=== PATIENT | male | born 1960 | race Caucasian/White ===

== ENCOUNTER 2017-07-31 13:16 | Inpatient (IN) | payer BC ==
[~2017-07-31] VITALS: Ht 182.9 cm; Wt 113.8 kg
[~2017-07-31 13:16] MED LIST: ASPI-1265 PO; ATOR40TA PO; CLOP75TA35 PO; FENO48TA15 PO; METF500T PO; NATE60TA11 PO; SITA100T15 PO; VALS1TAB73 PO; [UNRECOGNIZED DRUG - CODE] PO
[2017-07-31 14:03] LABS: CLARITY,URINE CLEAR (Clear); COLOR,URINE YELLOW (Yellow); GLUCOSE, URINE >=1000 mg/dl (Neg); KETONES,URINE NEGATIVE (Neg); LEUKOCYTE ESTERASE ,URINE NEGATIVE (Neg); NITRITES, URINE NEGATIVE (Neg); OCCULT BLOOD,URINE NEGATIVE (Neg); PROTEIN,URINE NEGATIVE (Neg); UROBILINOGEN,URINE 0.2 E.U/dL (0.2-1.0)
[2017-07-31 14:05] LABS: UA COLLECTION TYPE CLN CATCH MIDSTREAM
[2017-07-31 14:07] LABS: URINE AMPHETAMINE SCREEN NEGATIVE (Neg); URINE BARBITUATE SCREEN NEGATIVE (Neg); URINE BENZODIAZEPINES SCREEN NEGATIVE (Neg); URINE CANNABINOID SCREEN NEGATIVE (Neg); URINE COCAINE SCREEN NEGATIVE (Neg); URINE METHADONE SCREEN NEGATIVE (Neg); URINE OPIATE SCREEN POSITIVE (Neg); URINE PHENCYCLIDINE SCREEN NEGATIVE (Neg)
[2017-07-31 14:11] LABS: BASOPHILS % (AUTO) 0.2 % (0-1); EOSINOPHILS # (AUTO) 0.1 X10'3 (0-0.9); EOSINOPHILS % (AUTO) 0.4 % (0-6); HEMATOCRIT 40.3 % (42.0-52.0); HEMOGLOBIN 14.1 g/dl (14.0-17.9); LYMPHOCYTES # (AUTO) 0.6 X10'3 (1.1-4.8); LYMPHOCYTES % (AUTO) 3.2 % (21-51); MEAN CORPUSCULAR HEMOGLOBIN 30.5 PG (27.0-31.0); MEAN CORPUSCULAR VOLUME 87.2 FL (78-98); MEAN PLATELET VOLUME 8.8 FL (7.4-10.4); MONOCYTES # (AUTO) 1.1 X10'3 (0-0.9); MONOCYTES % (AUTO) 5.6 % (2-12); NEUTROPHILS % (AUTO) 90.6 % (42-75); PLATELET COUNT 270 X10'3 (140-440); RED BLOOD COUNT 4.62 X10'6 (4.70-6.10); RED CELL DISTRIBUTION WIDTH 13.1 % (11.5-14.5); WHITE BLOOD COUNT 18.8 X10'3 (4.5-11.0)
[2017-07-31 14:12] LABS: BACTERIA,URINE NONE SEEN /HPF (Neg); RBC,URINE NONE SEEN /HPF (0-2); SQUAMOUS EPITHELIAL CELL,UR NONE SEEN /LPF (FEW); WBC,URINE NONE SEEN /HPF (0-4)
[2017-07-31 14:17] LABS: ALANINE AMINOTRANSFERASE 26 U/L (12-78); ALBUMIN 3.6 G/DL (3.4-5.0); ALKALINE PHOSPHATASE 87 IU/L (46-116); ANION GAP 9 (8-16); ASPARTATE AMINO TRANSFERASE 12 U/L (10-37); BILIRUBIN,TOTAL 0.5 MG/DL (0.1-1.0); BLOOD UREA NITROGEN 21 MG/DL (7-18); BUN/CREATININE RATIO 19.3 (5.4-32.0); CHLORIDE 100 MMOL/L (99-107); CREATININE 1.09 MG/DL (0.60-1.10); GLUCOSE 289 MG/DL (70-104); POTASSIUM 4.5 MMOL/L (3.5-5.1); SODIUM 134 MMOL/L (135-145); TOTAL CARBON DIOXIDE 24.9 MMOL/L (24-32); TOTAL PROTEIN 7.3 G/DL (6.4-8.2); eGFR 70 ML/MIN
[2017-07-31] MEDS ORDERED: normal saline 1000ML IV soln IV ONE (14:35)
[2017-07-31] MEDS ORDERED: CefTRIAXone/D5W-Rocephin 1gm 50 ML IV ONE (14:35)
[2017-07-31] MEDS ORDERED: vancomycin/NS 1 GM ADD-VANTAGE 250 ML X 1 DOSE IV ONE (14:40)
[2017-07-31] MEDS ORDERED: morphine 4 MG/ML inj SYRINge IV ONE (15:30)
[2017-07-31] MEDS ORDERED: ondansetron/PF 4mg/2ml inj IV ONE (15:30)
[2017-07-31] MEDS ORDERED: mag hydrox/Alum hydrox/simeth 30ml oral suspension PO PRN (15:35)
[2017-07-31] MEDS ORDERED: potassium Cl 40MEQ/NS 500ml 500 ML IV PRN ×2 (15:35)
[2017-07-31] MEDS ORDERED: MESSAGE TO PHARMACY PO ONE (15:35)
[2017-07-31] MEDS ORDERED: magnesium hydroxide 30ml (MOM) UD suspension PO PRN (15:35)
[2017-07-31] MEDS ORDERED: dextrose 50%-water 50ml dispensing syringe IV PRN ×2 (15:35)
[2017-07-31] MEDS ORDERED: acetaminophen 325mg tablet PO PRN ×2 (15:35)
[2017-07-31] MEDS: K and/or MAG REPLACEMENT MC SCH (15:35)
[2017-07-31] MEDS ORDERED: glucagon, human recombinant 1mg kit SUBCUT PRN (15:35)
[2017-07-31] MEDS ORDERED: magnesium 2GM in 50ml NS 50 ML IV PRN (15:35)
[2017-07-31] MEDS ORDERED: HYDROcodone/acetaminophen 5mg/325mg tablet PO PRN (15:35)
[2017-07-31] MEDS ORDERED: dextrose ORAL solution 15 GM/59 ML bottle PO PRN ×2 (15:35)
[2017-07-31] MEDS ORDERED: ondansetron/PF 4mg/2ml inj IV PRN (15:35)
[2017-07-31] MEDS ORDERED: magnesium 4gm in 100ml NS 100 ML IV PRN (15:35)
[2017-07-31] MEDS ORDERED: HYDROmorphone inj. 0.5 MG/0.5 ML DISP.SYRIN IV PRN ×2 (15:35)
[2017-07-31] MEDS ORDERED: potassium Cl 20 mEq SR tablet PO PRN ×2 (15:35)
[2017-07-31] MEDS ORDERED: magnesium Cl slow-release 64mg tablet PO PRN (15:35)
[2017-07-31 16:07] LABS: HEMOGLOBIN A1C 9.4 % (4.5-6.2)
[2017-07-31] MEDS ORDERED: iohexol 300mg/ml 100ml inj. ONE (16:29)
[2017-07-31] MEDS ORDERED: ASPI-1265 PO (17:01)
[2017-07-31] MEDS ORDERED: ATOR20TA66 PO (17:01)
[2017-07-31] MEDS ORDERED: CLOP75TA35 PO ×2 (17:01→19:10)
[2017-07-31] MEDS ORDERED: METF500T PO ×2 (17:01→19:10)
[2017-07-31] MEDS ORDERED: SITA100T11 PO ×2 (17:01→19:10)
[2017-07-31] MEDS ORDERED: VALS1TAB73 PO ×2 (17:01→19:10)
[2017-07-31] MEDS ORDERED: GLIP-216 PO ×2 (17:01→19:10)
[2017-07-31] MEDS: HYDROcodone/acetaminophen 10/325mg tab PO PRN (17:59)
[2017-07-31] MEDS ORDERED: ATOR40TA PO (19:10)
[2017-07-31] MEDS ORDERED: ASPI81TA52 PO (19:10)
[2017-07-31 20:00] VITALS: BP 120/68
[2017-07-31] MEDS: normal saline 1000ml 1,000 ML IV SCH (20:30)
[2017-07-31] MEDS ORDERED: temazepam 15mg capsule PO PRN (21:00)
[2017-07-31] MEDS: insulin glargine (Lantus) pen - multi-dose SQ SCH (21:00)
[2017-08-01] MEDS: normal saline 1000ml 1,000 ML IV SCH ×3 (01:34→21:34)
[2017-08-01] MEDS: HYDROcodone/acetaminophen 10/325mg tab PO PRN ×5 (03:20→21:30)
[2017-08-01 05:00] VITALS: BP 134/73
[2017-08-01 05:52] LABS: BASOPHILS # (AUTO) 0.1 X10'3 (0-0.2); BASOPHILS % (AUTO) 0.5 % (0-1); EOSINOPHILS # (AUTO) 0.3 X10'3 (0-0.9); EOSINOPHILS % (AUTO) 2.6 % (0-6); HEMATOCRIT 35.5 % (42.0-52.0); HEMOGLOBIN 12.3 g/dl (14.0-17.9); LYMPHOCYTES # (AUTO) 1.4 X10'3 (1.1-4.8); LYMPHOCYTES % (AUTO) 11.5 % (21-51); MEAN CORPUSCULAR HEMOGLOBIN 30.3 PG (27.0-31.0); MEAN CORPUSCULAR HGB CONC 34.6 % (33.0-36.5); MEAN CORPUSCULAR VOLUME 87.8 FL (78-98); MEAN PLATELET VOLUME 8.4 FL (7.4-10.4); MONOCYTES # (AUTO) 1.3 X10'3 (0-0.9); MONOCYTES % (AUTO) 10.5 % (2-12); NEUTROPHILS # (AUTO) 8.9 X10'3 (1.8-7.7); NEUTROPHILS % (AUTO) 74.9 % (42-75); PLATELET COUNT 235 X10'3 (140-440); RED BLOOD COUNT 4.05 X10'6 (4.70-6.10); RED CELL DISTRIBUTION WIDTH 13.2 % (11.5-14.5); WHITE BLOOD COUNT 11.9 X10'3 (4.5-11.0)
[2017-08-01 06:17] LABS: ALANINE AMINOTRANSFERASE 24 U/L (12-78); ALBUMIN 3.1 G/DL (3.4-5.0); ALBUMIN/GLOBULIN RATIO 0.9 (1.1-1.5); ALKALINE PHOSPHATASE 72 IU/L (46-116); ANION GAP 9 (8-16); ASPARTATE AMINO TRANSFERASE 14 U/L (10-37); BILIRUBIN,TOTAL 0.4 MG/DL (0.1-1.0); BLOOD UREA NITROGEN 15 MG/DL (7-18); BUN/CREATININE RATIO 18.3 (5.4-32.0); CALCIUM 8.2 MG/DL (8.5-10.1); CHLORIDE 103 MMOL/L (99-107); CREATININE 0.82 MG/DL (0.60-1.10); GLUCOSE 202 MG/DL (70-104); MAGNESIUM 1.8 MG/DL (1.5-2.4); POTASSIUM 4.4 MMOL/L (3.5-5.1); SODIUM 137 MMOL/L (135-145); TOTAL CARBON DIOXIDE 24.9 MMOL/L (24-32); TOTAL PROTEIN 6.4 G/DL (6.4-8.2); eGFR > 90 ML/MIN
[2017-08-01] MEDS ORDERED: HYDROmorphone 1 mg/ml syringe ONE (07:57)
[2017-08-01] MEDS: K and/or MAG REPLACEMENT MC SCH (08:00)
[2017-08-01] MEDS: CefTRIAXone/D5W-Rocephin 1gm 50 ML IV SCH (08:08)
[2017-08-01] MEDS: atorvastatin 20mg tablet PO SCH (08:08)
[2017-08-01] MEDS: clopidogrel 75mg tablet PO SCH (08:08)
[2017-08-01] MEDS: enoxaparin 40mg/0.4ml syringe SQ SCH (08:09)
[2017-08-01] MEDS: aspirin 81mg tablet.DR PO SCH (08:09)
[2017-08-01] MEDS: HYDROchlorothiazide 25mg tablet PO SCH (08:12)
[2017-08-01 10:00] VITALS: BP 120/71
[2017-08-01] MEDS: insulin Lispro (HumaLOG) vial - multi-dose SQ SCH ×2 (13:40→19:18)
[2017-08-01 18:00] VITALS: BP 133/78
[2017-08-01] MEDS: lactobacillus rhamnosus 10,000 MMU CELLS/CAPSULE PO SCH (19:17)
[2017-08-01] MEDS: insulin glargine (Lantus) pen - multi-dose SQ SCH (21:29)
[2017-08-01 22:00] VITALS: BP 133/76
[2017-08-01] MEDS ORDERED: VANCOMYCIN LEVEL IV ONE (22:30)
[2017-08-02] MEDS: HYDROcodone/acetaminophen 10/325mg tab PO PRN ×3 (01:36→10:56)
[2017-08-02] MEDS: normal saline 1000ml 1,000 ML IV SCH (05:38)
[2017-08-02 06:09] LABS: BASOPHILS # (AUTO) 0.1 X10'3 (0-0.2); BASOPHILS % (AUTO) 0.7 % (0-1); EOSINOPHILS # (AUTO) 0.2 X10'3 (0-0.9); HEMATOCRIT 34.9 % (42.0-52.0); HEMOGLOBIN 12.2 g/dl (14.0-17.9); LYMPHOCYTES # (AUTO) 0.9 X10'3 (1.1-4.8); LYMPHOCYTES % (AUTO) 8.6 % (21-51); MEAN CORPUSCULAR HGB CONC 34.9 % (33.0-36.5); MEAN PLATELET VOLUME 8.6 FL (7.4-10.4); MONOCYTES # (AUTO) 0.9 X10'3 (0-0.9); MONOCYTES % (AUTO) 9.1 % (2-12); NEUTROPHILS # (AUTO) 8.2 X10'3 (1.8-7.7); NEUTROPHILS % (AUTO) 79.6 % (42-75); PLATELET COUNT 239 X10'3 (140-440); RED BLOOD COUNT 4.06 X10'6 (4.70-6.10); RED CELL DISTRIBUTION WIDTH 13.4 % (11.5-14.5); WHITE BLOOD COUNT 10.4 X10'3 (4.5-11.0)
[2017-08-02 06:27] LABS: ALANINE AMINOTRANSFERASE 26 U/L (12-78); ALBUMIN/GLOBULIN RATIO 0.9 (1.1-1.5); ALKALINE PHOSPHATASE 74 IU/L (46-116); ANION GAP 7 (8-16); ASPARTATE AMINO TRANSFERASE 18 U/L (10-37); BILIRUBIN,TOTAL 0.4 MG/DL (0.1-1.0); BLOOD UREA NITROGEN 10 MG/DL (7-18); BUN/CREATININE RATIO 12.7 (5.4-32.0); CALCIUM 8.7 MG/DL (8.5-10.1); CHLORIDE 104 MMOL/L (99-107); CREATININE 0.79 MG/DL (0.60-1.10); GLUCOSE 145 MG/DL (70-104); MAGNESIUM 1.5 MG/DL (1.5-2.4); POTASSIUM 4.2 MMOL/L (3.5-5.1); SODIUM 139 MMOL/L (135-145); TOTAL CARBON DIOXIDE 28.4 MMOL/L (24-32); TOTAL PROTEIN 6.3 G/DL (6.4-8.2); eGFR > 90 ML/MIN
[2017-08-02 07:05] VITALS: BP 138/80
[2017-08-02] MEDS: K and/or MAG REPLACEMENT MC SCH (08:00)
[2017-08-02] MEDS: lactobacillus rhamnosus 10,000 MMU CELLS/CAPSULE PO SCH (08:25)
[2017-08-02] MEDS: aspirin 81mg tablet.DR PO SCH (08:25)
[2017-08-02] MEDS: clopidogrel 75mg tablet PO SCH (08:25)
[2017-08-02] MEDS: HYDROchlorothiazide 25mg tablet PO SCH (08:26)
[2017-08-02] MEDS: atorvastatin 20mg tablet PO SCH (08:26)
[2017-08-02] MEDS: enoxaparin 40mg/0.4ml syringe SQ SCH (08:27)
[2017-08-02] MEDS: insulin Lispro (HumaLOG) vial - multi-dose SQ SCH (08:38)
[2017-08-02 10:29] VITALS: BP 131/77
[2017-08-02] MEDS: CefTRIAXone/D5W-Rocephin 1gm 50 ML IV SCH (10:49)
[2017-08-02] MEDS ORDERED: CEPH250T PO (11:44)
== END 2017-08-02 13:11 | disposition home or self-care (01) | DRG 872 ==
LOC: ER 13:16 → ED HOLD 15:34 → ORTHO 4S 19:45
PROVIDERS: ADMIT Family Medicine; ATTEND Internal Medicine
PROC: BQ2 Imaging, Non-Axial Lower Bones, Computerized Tomography (CT Scan) (ICD-10-PCS; principal; 2017-07-31)
DX: A41.9 Sepsis, unspecified organism (principal); E87.1 Hypo-osmolality and hyponatremia; L03.115 Cellulitis of right lower limb; E78.5 Hyperlipidemia, unspecified; R79.89 Other specified abnormal findings of blood chemistry; R81 Glycosuria; G47.33 Obstructive sleep apnea (adult) (pediatric); E11.9 Type 2 diabetes mellitus without complications; I25.10 Atherosclerotic heart disease of native coronary artery without angina pectoris; W57.XXXA Bitten or stung by nonvenomous insect and other nonvenomous arthropods, initial encounter; Z80.52 Family history of malignant neoplasm of bladder; Z91.19 Patient's noncompliance with other medical treatment and regimen; I25.2 Old myocardial infarction; Z95.5 Presence of coronary angioplasty implant and graft; Y93.89 Activity, other specified; Y92.89 Other specified places as the place of occurrence of the external cause; Y99.8 Other external cause status; Z91.048 Other nonmedicinal substance allergy status; Z95.1 Presence of aortocoronary bypass graft; Z99.81 Dependence on supplemental oxygen; Z86.14 Personal history of Methicillin resistant Staphylococcus aureus infection
CPT/HCPCS: 36415; 73701; 80053; 80202; 80305; 81001; 82948; 83036; 83605; 83735; 84145; 85025; 87040; 87070; 96361; 96374; 96375; 99285; J0696; J1170; J1650; J1815; J2270; J2405; J3370; J7030; Q9967

== ENCOUNTER 2017-12-27 10:12 | Emergency (ER) | payer BC ==
[~2017-12-27] VITALS: Ht 182.9 cm; Wt 90.0 kg
[~2017-12-27 10:12] MED LIST changes: -ASPI-1265 PO; +ASPI81TA52 PO; -FENO48TA15 PO; +GLIP-216 PO; -NATE60TA11 PO; +SITA100T11 PO; -SITA100T15 PO; -[UNRECOGNIZED DRUG - CODE] PO
[2017-12-27 10:20] VITALS: BP 124/74
== END 2017-12-27 12:44 | disposition home or self-care (01) ==
LOC: ER 10:12
DX: T83.89XA Other specified complication of genitourinary prosthetic devices, implants and grafts, initial encounter (principal); R31.9 Hematuria, unspecified; I25.10 Atherosclerotic heart disease of native coronary artery without angina pectoris; I10 Essential (primary) hypertension; E11.9 Type 2 diabetes mellitus without complications; F17.200 Nicotine dependence, unspecified, uncomplicated; Z79.82 Long term (current) use of aspirin; Z79.899 Other long term (current) drug therapy; Y92.9 Unspecified place or not applicable
CPT/HCPCS: 99281; 99283

== ENCOUNTER 2020-01-08 08:10 | Outpatient (CLI) | payer BC ==
[~2020-01-08 08:10] MED LIST changes: -GLIP-216 PO; +GLIP10TA21 PO
[2020-01-08] MEDS ORDERED: LIDOcaine 2% 5ml jelly ONE ×2 (08:59→09:18)
== END 2020-01-08 23:59 | disposition home or self-care (01) ==
LOC: WOUND CARE 08:10
PROVIDERS: ATTEND Nurse Practitioner
DX: E11.621 Type 2 diabetes mellitus with foot ulcer (principal); L97.523 Non-pressure chronic ulcer of other part of left foot with necrosis of muscle; I10 Essential (primary) hypertension; L03.115 Cellulitis of right lower limb; I25.10 Atherosclerotic heart disease of native coronary artery without angina pectoris; R31.9 Hematuria, unspecified; N40.0 Benign prostatic hyperplasia without lower urinary tract symptoms; E78.5 Hyperlipidemia, unspecified; E87.1 Hypo-osmolality and hyponatremia; G47.30 Sleep apnea, unspecified; I25.2 Old myocardial infarction; M79.89 Other specified soft tissue disorders; F17.200 Nicotine dependence, unspecified, uncomplicated; Z79.899 Other long term (current) drug therapy; Z86.14 Personal history of Methicillin resistant Staphylococcus aureus infection; Z87.442 Personal history of urinary calculi; Z99.81 Dependence on supplemental oxygen; Z85.54 Personal history of malignant neoplasm of ureter; Z79.82 Long term (current) use of aspirin; Z85.46 Personal history of malignant neoplasm of prostate; Z85.51 Personal history of malignant neoplasm of bladder; Z95.1 Presence of aortocoronary bypass graft; Z95.5 Presence of coronary angioplasty implant and graft
CPT/HCPCS: 11043; 11046; 82948

== ENCOUNTER 2020-01-15 09:41 | Outpatient (CLI) | payer BC ==
[2020-01-15] MEDS ORDERED: LIDOcaine 2% 5ml jelly ONE ×2 (10:17)
== END 2020-01-15 23:59 | disposition home or self-care (01) ==
LOC: WOUND CARE 09:41 → EDSTATUS 01-16 08:00
PROVIDERS: ATTEND Nurse Practitioner
DX: E11.621 Type 2 diabetes mellitus with foot ulcer (principal); L97.522 Non-pressure chronic ulcer of other part of left foot with fat layer exposed; I10 Essential (primary) hypertension; E11.52 Type 2 diabetes mellitus with diabetic peripheral angiopathy with gangrene; I96 Gangrene, not elsewhere classified; G47.33 Obstructive sleep apnea (adult) (pediatric); I25.10 Atherosclerotic heart disease of native coronary artery without angina pectoris; N40.0 Benign prostatic hyperplasia without lower urinary tract symptoms; E78.5 Hyperlipidemia, unspecified; E87.1 Hypo-osmolality and hyponatremia; I25.2 Old myocardial infarction; M79.89 Other specified soft tissue disorders; Z79.899 Other long term (current) drug therapy; F17.210 Nicotine dependence, cigarettes, uncomplicated; Z86.14 Personal history of Methicillin resistant Staphylococcus aureus infection; Z99.81 Dependence on supplemental oxygen; Z85.54 Personal history of malignant neoplasm of ureter; Z79.82 Long term (current) use of aspirin; Z85.46 Personal history of malignant neoplasm of prostate; Z85.51 Personal history of malignant neoplasm of bladder; Z95.1 Presence of aortocoronary bypass graft; Z87.442 Personal history of urinary calculi; Z95.5 Presence of coronary angioplasty implant and graft
CPT/HCPCS: 11042; 11045; 82948

== ENCOUNTER 2020-01-16 09:30 | Outpatient (CLI) | payer BC | END 2020-01-16 23:59 | disposition home or self-care (01) | LOC: WOUND CARE 09:30 | PROVIDERS: ATTEND Nurse Practitioner | DX: E11.621 Type 2 diabetes mellitus with foot ulcer (principal); L97.522 Non-pressure chronic ulcer of other part of left foot with fat layer exposed; I10 Essential (primary) hypertension; E11.52 Type 2 diabetes mellitus with diabetic peripheral angiopathy with gangrene; I96 Gangrene, not elsewhere classified; G47.33 Obstructive sleep apnea (adult) (pediatric); I25.10 Atherosclerotic heart disease of native coronary artery without angina pectoris; N40.0 Benign prostatic hyperplasia without lower urinary tract symptoms; E78.5 Hyperlipidemia, unspecified; E87.1 Hypo-osmolality and hyponatremia; I25.2 Old myocardial infarction; Z79.899 Other long term (current) drug therapy; F17.210 Nicotine dependence, cigarettes, uncomplicated; Z86.14 Personal history of Methicillin resistant Staphylococcus aureus infection; Z99.81 Dependence on supplemental oxygen; Z85.54 Personal history of malignant neoplasm of ureter; Z79.82 Long term (current) use of aspirin; Z85.46 Personal history of malignant neoplasm of prostate; Z85.51 Personal history of malignant neoplasm of bladder; Z95.1 Presence of aortocoronary bypass graft; Z87.442 Personal history of urinary calculi; Z95.5 Presence of coronary angioplasty implant and graft | CPT/HCPCS: 82948; G0463 ==

== ENCOUNTER 2020-01-21 08:24 | Outpatient (CLI) | payer BC ==
[2020-01-21] MEDS ORDERED: LIDOcaine 2% 5ml jelly ONE (08:52)
[2020-01-21 09:20] LABS: BASOPHILS # (AUTO) 0.1 X10'3 (0-0.2); BASOPHILS % (AUTO) 1.3 % (0-1); EOSINOPHILS # (AUTO) 0.1 X10'3 (0-0.9); EOSINOPHILS % (AUTO) 1.4 % (0-6); LYMPHOCYTES # (AUTO) 1.1 X10'3 (1.1-4.8); LYMPHOCYTES % (AUTO) 10.4 % (21-51); MEAN CORPUSCULAR HEMOGLOBIN 28.9 PG (27.0-31.0); MEAN CORPUSCULAR HGB CONC 33.4 g/dL (33.0-36.5); MEAN CORPUSCULAR VOLUME 86.5 FL (78-98); MEAN PLATELET VOLUME 7.5 FL (7.4-10.4); MONOCYTES # (AUTO) 0.8 X10'3 (0-0.9); NEUTROPHILS # (AUTO) 8.3 X10'3 (1.8-7.7); NEUTROPHILS % (AUTO) 78.9 % (42-75); PRE OP HEMATOCRIT 39.2 % (42.0-52.0); PRE OP HEMOGLOBIN 13.1 g/dL (14.0-17.9); PRE OP PLATELET COUNT 418 X10'3 (140-440); RED BLOOD COUNT 4.54 X10'6 (4.70-6.10); RED CELL DISTRIBUTION WIDTH 14.2 % (11.5-14.5)
[2020-01-21 09:32] LABS: ALBUMIN 3.6 G/DL (3.4-5.0); ALBUMIN/GLOBULIN RATIO 0.8 (1.1-1.5); ALKALINE PHOSPHATASE 95 IU/L (46-116); BLOOD UREA NITROGEN 14 MG/DL (7-18); BUN/CREATININE RATIO 15.9 (5.4-32.0); C-REACTIVE PROTEIN 1.31 MG/DL (0.0-0.5); CALCIUM 9.9 MG/DL (8.5-10.1); CHLORIDE 103 MMOL/L (99-107); CREATININE 0.88 MG/DL (0.60-1.10); PRE OP ALT 18 U/L (30-65); PRE OP ANION GAP 8 (8-16); PRE OP AST 9 U/L (10-37); PRE OP BILIRUB, TOTAL 0.4 MG/DL (0.0-1.0); PRE OP POTASSIUM 4.7 MMOL/L (3.4-5.1); PRE OP SODIUM 139 MMOL/L (135-145); TOTAL CARBON DIOXIDE 28.2 MMOL/L (24-32); TOTAL PROTEIN 7.9 G/DL (6.4-8.2); eGFR 89 ML/MIN
[2020-01-21 09:49] LABS: PRE OP GLUCOSE 201 MG/DL (70-104)
[2020-01-21] MEDS ORDERED: FLO0.4C PO (10:45)
[2020-01-21] MEDS ORDERED: HYDR-3972 PO (10:45)
[2020-01-21] MEDS ORDERED: AMOX-580 PO (10:45)
[2020-01-21] MEDS ORDERED: BUPR-72 PO (10:45)
== END 2020-01-21 23:59 | disposition home or self-care (01) ==
LOC: WOUND CARE 08:24
PROVIDERS: ATTEND Nurse Practitioner
DX: E11.621 Type 2 diabetes mellitus with foot ulcer (principal); L97.522 Non-pressure chronic ulcer of other part of left foot with fat layer exposed; I10 Essential (primary) hypertension; L03.115 Cellulitis of right lower limb; I25.10 Atherosclerotic heart disease of native coronary artery without angina pectoris; R31.9 Hematuria, unspecified; N40.0 Benign prostatic hyperplasia without lower urinary tract symptoms; E78.5 Hyperlipidemia, unspecified; E11.52 Type 2 diabetes mellitus with diabetic peripheral angiopathy with gangrene; I96 Gangrene, not elsewhere classified; E87.1 Hypo-osmolality and hyponatremia; G47.30 Sleep apnea, unspecified; I25.2 Old myocardial infarction; M79.89 Other specified soft tissue disorders; G47.33 Obstructive sleep apnea (adult) (pediatric); F17.210 Nicotine dependence, cigarettes, uncomplicated; Z79.899 Other long term (current) drug therapy; Z86.14 Personal history of Methicillin resistant Staphylococcus aureus infection; Z87.442 Personal history of urinary calculi; Z99.81 Dependence on supplemental oxygen; Z85.54 Personal history of malignant neoplasm of ureter; Z79.82 Long term (current) use of aspirin; Z85.46 Personal history of malignant neoplasm of prostate; Z85.51 Personal history of malignant neoplasm of bladder; Z95.1 Presence of aortocoronary bypass graft; Z95.5 Presence of coronary angioplasty implant and graft
CPT/HCPCS: 36415; 80053; 82948; 85025; 85651; 86140; 87635; 93005; G0463

== ENCOUNTER 2020-01-29 08:59 | Outpatient (CLI) | payer BC ==
[~2020-01-29 08:59] MED LIST changes: +AMOX-580 PO; -ASPI81TA52 PO; +BUPR-72 PO; +FLO0.4C PO; -GLIP10TA21 PO; +HYDR-3972 PO
== END 2020-01-29 23:59 | disposition home or self-care (01) ==
LOC: WOUND CARE 08:59
PROVIDERS: ATTEND Nurse Practitioner
DX: E11.621 Type 2 diabetes mellitus with foot ulcer (principal); L97.522 Non-pressure chronic ulcer of other part of left foot with fat layer exposed; I25.2 Old myocardial infarction; I25.10 Atherosclerotic heart disease of native coronary artery without angina pectoris; I10 Essential (primary) hypertension; E11.52 Type 2 diabetes mellitus with diabetic peripheral angiopathy with gangrene; I96 Gangrene, not elsewhere classified; E78.5 Hyperlipidemia, unspecified; G47.33 Obstructive sleep apnea (adult) (pediatric); N40.0 Benign prostatic hyperplasia without lower urinary tract symptoms; E87.1 Hypo-osmolality and hyponatremia; F17.210 Nicotine dependence, cigarettes, uncomplicated; Z99.81 Dependence on supplemental oxygen; Z79.899 Other long term (current) drug therapy; Z86.14 Personal history of Methicillin resistant Staphylococcus aureus infection; Z79.82 Long term (current) use of aspirin; Z95.1 Presence of aortocoronary bypass graft; Z95.5 Presence of coronary angioplasty implant and graft; Z68.28 Body mass index [BMI] 28.0-28.9, adult; Z79.01 Long term (current) use of anticoagulants; Z98.890 Other specified postprocedural states; Z85.46 Personal history of malignant neoplasm of prostate; Z85.51 Personal history of malignant neoplasm of bladder; Z85.54 Personal history of malignant neoplasm of ureter
CPT/HCPCS: 82948; G0463

== ENCOUNTER 2020-01-30 11:18 | Day surgery (SDC) | payer BC ==
[~2020-01-30] VITALS: Ht 182.9 cm; Wt 95.6 kg
[2020-01-30] VITALS (9 sets, daily range): BP systolic 128–162; BP diastolic 77–92
[~2020-01-30 11:18] MED LIST changes: +ceFAZolin 2gm in dextrose, iso 50 ML IV ONE; +famotidine 20mg tablet PO ONE; +ringers solution, lacted 1,000 ML IV SCH
[2020-01-30] MEDS ORDERED: BUPIVAcaine/PF 2.5 mg/ml (0.25%) 30ml vial ONE (14:19)
[2020-01-30] MEDS ORDERED: bacitracin 15gm ointment TP ONE (14:19)
[2020-01-30] MEDS ORDERED: midazolam 2 mg/2 ml injection ONE (15:00)
[2020-01-30] MEDS ORDERED: fentaNYL/PF 50MCG/1 ML 2ML syringe ONE (15:00)
[2020-01-30] MEDS ORDERED: labetalol 20mg/4ml (5mg/ml) syringe IV PRN (15:05)
[2020-01-30] MEDS ORDERED: acetaminophen 1,000mg/100ml IV 100 ML IV PRN (15:05)
[2020-01-30] MEDS ORDERED: ondansetron/PF 4mg/2ml inj IV PRN (15:05)
[2020-01-30] MEDS ORDERED: morphine 2 MG/ML inj. syringe IV PRN (15:05)
[2020-01-30] MEDS ORDERED: ROPIVAcaine 0.2%/PF PUMP/bolus 550 ML POPLITEAL SCH (15:05)
[2020-01-30] MEDS ORDERED: proCHLORperazine 10 MG/2 ml inj IV PRN (15:05)
[2020-01-30] MEDS ORDERED: hydrALAZINE 20mg/ml inj. IV PRN (15:05)
[2020-01-30] MEDS ORDERED: meperidine/PF 25mg/ml syringe IV PRN ×2 (15:05)
[2020-01-30] MEDS ORDERED: ringers solution, lacted 1,000 ML IV SCH (15:05)
[2020-01-30] MEDS ORDERED: morphine 4 MG/ML inj SYRINge IV PRN (15:05)
[2020-01-30] MEDS ORDERED: ROPIVAcaine 0.2% (10 MG/5 ML) BOLUS INJECTION POPLITEAL PRN (15:05)
[2020-01-30] MEDS ORDERED: sevoflurane 250ml liquid IH ONE (15:12)
--- NOTE | 2020-01-30 15:28 | NUR ---
Asked by PAS WILLIAM Good to please set up H/H for pt. Attestation completed, given to dc planning for referral.
[2020-01-30] MEDS ORDERED: ondansetron/PF 4mg/2ml inj ONE (15:51)
[2020-01-30] MEDS ORDERED: LIDOcaine 2% (20mg/ml) 5ml vial ONE ×2 (15:51)
[2020-01-30] MEDS ORDERED: dexamethasone sod phosphate 4mg/ml inj. ONE (15:51)
[2020-01-30] MEDS ORDERED: propofol inj 20 ML IV ONE (15:51)
[2020-01-30] MEDS ORDERED: ROPIVAcaine 0.5% (5mg/ml) 30ml vial ONE (15:51)
[2020-01-30] MEDS ORDERED: ketorolac trometh. 30mg/ml inj. ONE (16:42)
--- NOTE | 2020-01-30 16:54 | NUR ---
Received from OR via [facility], accompanied by Anesthesiologist Juan and report given by Anesthesiolgist. VS stable and patient responsive, mask to 10L sats 98%. Left foot wrapped with shivani wrap over gauze dressing, CDI. Pt moving left leg and foot well. Ice on site. Left forearm 20G IVF LR at 100cc.hr.
[2020-01-30] MEDS: meperidine/PF 25mg/ml syringe IV PRN ×2 (17:21→17:48)
--- NOTE | 2020-01-30 18:14 | NUR ---
Pt discharged to vehicle be wheelchair without incident after IV DC'd and all belongings returned to him. Dressing remainds CDI, more gauze given in case of bleeding. Extensive education with ON-Q medicine given to him and on phone both verbalized understanding. Also educated on how to use PO pain meds for break through pain. Instructed him to call for wound care follow up appt on sunday, and to request instructions on when to take down dressing based on when they could provide an appointment for him.
== END 2020-01-30 18:14 | disposition home or self-care (01) ==
LOC: PAS 11:18
PROVIDERS: ATTEND Podiatrist Foot & Ankle Surgery
DX: E11.52 Type 2 diabetes mellitus with diabetic peripheral angiopathy with gangrene (principal); I96 Gangrene, not elsewhere classified; G89.18 Other acute postprocedural pain; F17.210 Nicotine dependence, cigarettes, uncomplicated; I25.10 Atherosclerotic heart disease of native coronary artery without angina pectoris; G47.33 Obstructive sleep apnea (adult) (pediatric); I25.2 Old myocardial infarction; E66.9 Obesity, unspecified; Z68.28 Body mass index [BMI] 28.0-28.9, adult; Z85.46 Personal history of malignant neoplasm of prostate; Z85.51 Personal history of malignant neoplasm of bladder; Z85.54 Personal history of malignant neoplasm of ureter; Z98.890 Other specified postprocedural states; Z79.01 Long term (current) use of anticoagulants; Z95.5 Presence of coronary angioplasty implant and graft
CPT/HCPCS: 28805; 64446; 64447; 76937; 76942; 82948; 87070; 87075; 87102; A6223; J0131; J1100; J1885; J2001; J2175; J2250; J2270; J2405; J2704; J2795; J3010; J3490; J7120; A4618; A6253; A6449; A7000

== ENCOUNTER 2020-02-06 08:11 | Outpatient (CLI) | payer BC ==
[~2020-02-06 08:11] MED LIST changes: +ASPI81TA52 PO; +GLIP10TA21 PO; -ceFAZolin 2gm in dextrose, iso 50 ML IV ONE; -famotidine 20mg tablet PO ONE; -ringers solution, lacted 1,000 ML IV SCH
== END 2020-02-06 23:59 | disposition home or self-care (01) ==
LOC: WOUND CARE 08:11
PROVIDERS: ATTEND Nurse Practitioner
DX: T87.89 Other complications of amputation stump (principal); E11.621 Type 2 diabetes mellitus with foot ulcer; L97.522 Non-pressure chronic ulcer of other part of left foot with fat layer exposed; I10 Essential (primary) hypertension; L03.115 Cellulitis of right lower limb; I25.10 Atherosclerotic heart disease of native coronary artery without angina pectoris; R31.9 Hematuria, unspecified; E78.5 Hyperlipidemia, unspecified; E11.52 Type 2 diabetes mellitus with diabetic peripheral angiopathy with gangrene; I96 Gangrene, not elsewhere classified; G47.30 Sleep apnea, unspecified; I25.2 Old myocardial infarction; M79.89 Other specified soft tissue disorders; G47.33 Obstructive sleep apnea (adult) (pediatric); F17.210 Nicotine dependence, cigarettes, uncomplicated; Z79.899 Other long term (current) drug therapy; Z86.14 Personal history of Methicillin resistant Staphylococcus aureus infection; Z99.81 Dependence on supplemental oxygen; Z85.54 Personal history of malignant neoplasm of ureter; Z79.82 Long term (current) use of aspirin; Z85.46 Personal history of malignant neoplasm of prostate; Z85.51 Personal history of malignant neoplasm of bladder; Z95.1 Presence of aortocoronary bypass graft; Z95.5 Presence of coronary angioplasty implant and graft; Y83.5 Amputation of limb(s) as the cause of abnormal reaction of the patient, or of later complication, without mention of misadventure at the time of the procedure; Y92.238 Other place in hospital as the place of occurrence of the external cause
CPT/HCPCS: 36416; 82948; G0463

== ENCOUNTER 2020-02-10 11:49 | Inpatient (IN) | payer BC ==
[~2020-02-10] VITALS: Ht 185.4 cm; Wt 100.0 kg
[~2020-02-10 11:49] MED LIST changes: -ASPI81TA52 PO; -GLIP10TA21 PO
[2020-02-10 14:46] LABS: BASOPHILS # (AUTO) 0.1 X10'3 (0-0.2); BASOPHILS % (AUTO) 0.6 % (0-1); EOSINOPHILS # (AUTO) 0.1 X10'3 (0-0.9); EOSINOPHILS % (AUTO) 0.6 % (0-6); HEMATOCRIT 32.7 % (42.0-52.0); HEMOGLOBIN 10.9 g/dl (14.0-17.9); LYMPHOCYTES # (AUTO) 0.7 X10'3 (1.1-4.8); LYMPHOCYTES % (AUTO) 3.8 % (21-51); MEAN CORPUSCULAR HEMOGLOBIN 28.9 PG (27.0-31.0); MEAN CORPUSCULAR HGB CONC 33.3 g/dL (33.0-36.5); MEAN CORPUSCULAR VOLUME 86.8 FL (78-98); MEAN PLATELET VOLUME 6.9 FL (7.4-10.4); MONOCYTES # (AUTO) 1.6 X10'3 (0-0.9); NEUTROPHILS # (AUTO) 15.5 X10'3 (1.8-7.7); PLATELET COUNT 519 X10'3 (140-440); RED BLOOD COUNT 3.77 X10'6 (4.70-6.10); RED CELL DISTRIBUTION WIDTH 13.8 % (11.5-14.5)
[2020-02-10] MEDS ORDERED: CefTRIAXone/D5W-Rocephin 1gm 50 ML IV ONE (14:55)
[2020-02-10 15:05] LABS: ALANINE AMINOTRANSFERASE 54 U/L (12-78); ALBUMIN 2.7 G/DL (3.4-5.0); ALBUMIN/GLOBULIN RATIO 0.5 (1.1-1.5); ALKALINE PHOSPHATASE 136 IU/L (46-116); ANION GAP 14 (8-16); ASPARTATE AMINO TRANSFERASE 46 U/L (10-37); BILIRUBIN,TOTAL 0.5 MG/DL (0.1-1.0); BLOOD UREA NITROGEN 13 MG/DL (7-18); BUN/CREATININE RATIO 16.7 (5.4-32.0); CALCIUM 9.7 MG/DL (8.5-10.1); CHLORIDE 97 MMOL/L (99-107); CREATININE 0.78 MG/DL (0.60-1.10); GLUCOSE 108 MG/DL (70-104); POTASSIUM 4.6 MMOL/L (3.5-5.1); SODIUM 136 MMOL/L (135-145); TOTAL CARBON DIOXIDE 24.7 MMOL/L (24-32); TOTAL PROTEIN 7.9 G/DL (6.4-8.2); eGFR > 90 ML/MIN
--- NOTE | 2020-02-10 16:13 | NUR ---
US TECH AT BEDSIDE.
[2020-02-10] MEDS ORDERED: glucagon, human recombinant 1mg kit SUBCUT PRN (16:45)
[2020-02-10] MEDS ORDERED: magnesium hydroxide 30ml (MOM) UD suspension PO PRN (16:45)
[2020-02-10] MEDS ORDERED: potassium Cl 20 mEq SR tablet PO PRN ×2 (16:45)
[2020-02-10] MEDS ORDERED: mag hydrox/Alum hydrox/simeth 30ml oral suspension PO PRN (16:45)
[2020-02-10] MEDS ORDERED: magnesium 2GM in 50ml NS 50 ML IV PRN (16:45)
[2020-02-10] MEDS ORDERED: dextrose ORAL solution 15 GM/59 ML bottle PO PRN ×2 (16:45)
[2020-02-10] MEDS ORDERED: MESSAGE TO PHARMACY PO ONE (16:45)
[2020-02-10] MEDS ORDERED: potassium Cl 40MEQ/1/2NS 520ml 520 ML IV PRN ×2 (16:45)
[2020-02-10] MEDS ORDERED: dextrose 50%-water 50ml dispensing syringe IV PRN ×2 (16:45)
[2020-02-10] MEDS ORDERED: magnesium 4gm in 100ml NS 100 ML IV PRN (16:45)
[2020-02-10] MEDS ORDERED: acetaminophen 325mg tablet PO PRN (16:45)
[2020-02-10] MEDS ORDERED: HYDROmorphone inj. 0.5 MG/0.5 ML DISP.SYRIN IV ONE (17:10)
[2020-02-10] MEDS ORDERED: morphine 4 MG/ML inj SYRINge IV ONE (17:15)
[2020-02-10 17:30] LABS: HEMOGLOBIN A1C 7.7 % (4.5-6.2)
[2020-02-10] MEDS ORDERED: TRAM50TA2 PO (18:06)
[2020-02-10] MEDS ORDERED: FENO145T26 PO (18:08)
[2020-02-10] MEDS ORDERED: DOXY-1 PO (18:11)
[2020-02-10] MEDS ORDERED: EMPA10TA PO (18:16)
[2020-02-10] MEDS ORDERED: SULF1TAB49 PO (18:17)
[2020-02-10] MEDS ORDERED: TEST75GE10 TD (18:28)
[2020-02-10] MEDS: normal saline 1000ml 1,000 ML IV SCH (19:34)
[2020-02-10] MEDS: piperacillin/tazo 4.5gm/100ml 100 ML IV SCH (19:35)
[2020-02-10] MEDS: VANCOmycin 1250MG/NS 250ml Bag 250 ML IV SCH (19:35)
[2020-02-10 20:00] VITALS: BP 126/65
[2020-02-10] MEDS ORDERED: vancomycin/NS 1 GM ADD-VANTAGE 250 ML IV SCH (20:00)
[2020-02-10] MEDS: K and/or MAG REPLACEMENT MC SCH (20:00)
--- NOTE | 2020-02-10 20:58 | NUR ---
Received report from Marlena THOMAS in the ER. Pt arrived on a gurney and was able to slide himself over to his bed with minimal assiatnce. His personal belongings were placed at bedside. He had Vanco running @ 166 mls/hr, VSS, no signs of distress. Will continue to monitor.
[2020-02-10] MEDS: insulin glargine (Lantus) pen - multi-dose SQ SCH (21:00)
[2020-02-10] MEDS ORDERED: HYDROcodone/acetaminophen 10/325mg tab PO PRN (21:30)
[2020-02-10] MEDS: HYDROcodone/acetaminophen 10/325mg tab PO PRN (22:27)
[2020-02-10] MEDS: enoxaparin 40mg/0.4ml syringe SQ SCH (22:28)
[2020-02-11] VITALS: BP 117/59
[2020-02-11] MEDS: piperacillin/tazo 4.5gm/100ml 100 ML IV SCH ×4 (00:34→23:25)
[2020-02-11] MEDS: normal saline 1000ml 1,000 ML IV SCH ×3 (03:34→15:56)
[2020-02-11] MEDS: VANCOmycin 1250MG/NS 250ml Bag 250 ML IV SCH ×2 (05:26→15:56)
--- NOTE | 2020-02-11 06:26 | NUR ---
Patient in room AMBER 346. I have received report from WILLIAM Jaffe and dc Jaimes RN and had the opportunity to ask questions and assume patient care.
--- NOTE | 2020-02-11 06:32 | NUR ---
Problems reprioritized. Patient report given, questions answered & plan of care reviewed with Isidra THOMAS.
[2020-02-11] MEDS: HYDROcodone/acetaminophen 10/325mg tab PO PRN ×2 (06:34→19:57)
[2020-02-11 06:54] LABS: BASOPHILS # (AUTO) 0.1 X10'3 (0-0.2); BASOPHILS % (AUTO) 0.5 % (0-1); EOSINOPHILS # (AUTO) 0.2 X10'3 (0-0.9); EOSINOPHILS % (AUTO) 1.2 % (0-6); HEMATOCRIT 28.3 % (42.0-52.0); HEMOGLOBIN 9.8 g/dl (14.0-17.9); LYMPHOCYTES # (AUTO) 0.9 X10'3 (1.1-4.8); LYMPHOCYTES % (AUTO) 5.6 % (21-51); MEAN CORPUSCULAR HEMOGLOBIN 29.6 PG (27.0-31.0); MEAN CORPUSCULAR HGB CONC 34.4 g/dL (33.0-36.5); MEAN CORPUSCULAR VOLUME 86.1 FL (78-98); MEAN PLATELET VOLUME 7.1 FL (7.4-10.4); MONOCYTES # (AUTO) 1.7 X10'3 (0-0.9); MONOCYTES % (AUTO) 10.3 % (2-12); NEUTROPHILS # (AUTO) 13.6 X10'3 (1.8-7.7); NEUTROPHILS % (AUTO) 82.4 % (42-75); PLATELET COUNT 471 X10'3 (140-440); RED BLOOD COUNT 3.29 X10'6 (4.70-6.10); RED CELL DISTRIBUTION WIDTH 13.8 % (11.5-14.5); WHITE BLOOD COUNT 16.6 X10'3 (4.5-11.0)
[2020-02-11 07:00] VITALS: BP 122/64
[2020-02-11 07:10] LABS: ALANINE AMINOTRANSFERASE 60 U/L (12-78); ALBUMIN 2.2 G/DL (3.4-5.0); ALBUMIN/GLOBULIN RATIO 0.5 (1.1-1.5); ALKALINE PHOSPHATASE 127 IU/L (46-116); ANION GAP 16 (8-16); ASPARTATE AMINO TRANSFERASE 70 U/L (10-37); BILIRUBIN,TOTAL 0.5 MG/DL (0.1-1.0); BLOOD UREA NITROGEN 15 MG/DL (7-18); BUN/CREATININE RATIO 20.8 (5.4-32.0); CALCIUM 9.2 MG/DL (8.5-10.1); CHLORIDE 99 MMOL/L (99-107); CREATININE 0.72 MG/DL (0.60-1.10); GLUCOSE 90 MG/DL (70-104); MAGNESIUM 1.7 MG/DL (1.5-2.4); SODIUM 139 MMOL/L (135-145); TOTAL CARBON DIOXIDE 23.8 MMOL/L (24-32); TOTAL PROTEIN 6.9 G/DL (6.4-8.2); eGFR > 90 ML/MIN
[2020-02-11] MEDS: K and/or MAG REPLACEMENT MC SCH ×2 (08:00→19:57)
[2020-02-11] MEDS: TESTOSTERONE TP SCH (08:00)
[2020-02-11] MEDS: atorvastatin 20mg tablet PO SCH (08:32)
[2020-02-11] MEDS: clopidogrel 75mg tablet PO SCH (08:32)
[2020-02-11] MEDS: buPROPion SR 150mg tablet PO SCH (08:32)
[2020-02-11] MEDS: fenofibrate 145mg tablet PO SCH (08:32)
[2020-02-11] MEDS: HYDROmorphone inj. 0.5 MG/0.5 ML DISP.SYRIN IV PRN ×2 (10:37→23:26)
[2020-02-11 11:00] VITALS: BP 118/61
--- NOTE | 2020-02-11 14:33 | NUR ---
WOUND INFECTION EDUCATION PROVIDED BY WOUND CARE 1. Patient instructed to call their primary doctor, or go the ED immediately if any of the following symptoms occur: * Increased pain in wound * Increase in drainage from the wound * Redness in the skin surrounding the wound * Warmth in the skin surrounding the wound * Bleeding from the wound * Temperature of 101 or greater 2. If any of these occur while in the hospital tell a nurse immediately. Addendum: 02/11/20 at 1433 by Gabbie Jordan RN Amended: Links added.
--- NOTE | 2020-02-11 15:47 | NUR ---
DM/Wound care consults: Pt admit DX L leg cellulitis, severe L foot infection w/ evidence of necrosis per MD note. Hx prior L TMA w/ current wound infection, T2DM A1C 7.7, and bladder CA w/ METS to prostate per EMR. PO 75-100% avg carb controlled meals good given healing needs. Pt seen by RD for written/verbal high protein and verbal DM eds w/ RD contact information provided. Pt declines additional proteins or Chetan shakes/smoothies for wound healing at this time; passive during ed. RD began verbally reviewing DM ed but pt went to sleep upon start of ed and would not wake from sleeping. Pt pending L BKA possibly Sunday per MD note. Will continue to monitor for additional protein/kcal needs post-op and PO hx this admit. Rec: 1. continue carb controlled diet 2. consider Chetan ONS post-op if pt becomes agreeable given healing needs 3. routine bowel care 4. scaled wt this admit Addendum: 02/11/20 at [address] Amended: Links added.
[2020-02-11] MEDS: HYDROcodone/acetaminophen 5mg/325mg tablet PO PRN (16:01)
[2020-02-11 18:00] VITALS: BP 138/67
--- NOTE | 2020-02-11 18:00 | NUR ---
Patient in room AMBER 346. I have received report from Isidra THOMAS and had the opportunity to ask questions and assume patient care.
--- NOTE | 2020-02-11 18:27 | NUR ---
Problems reprioritized. Patient report given, questions answered & plan of care reviewed with WILLIAM Galindo and dc Jaimes RN.
--- NOTE | 2020-02-11 18:43 | NUR ---
Patient in room AMBER 346. I have received report from Isidra THOMAS and had the opportunity to ask questions and assume patient care.
[2020-02-11] MEDS: enoxaparin 40mg/0.4ml syringe SQ SCH (19:56)
[2020-02-11] MEDS: lactobacillus rhamnosus 10,000 MMU CELLS/CAPSULE PO SCH (19:57)
[2020-02-11] MEDS: tamsulosin 0.4mg capsule PO SCH (20:02)
[2020-02-11] MEDS: insulin glargine (Lantus) pen - multi-dose SQ SCH (21:00)
[2020-02-11 23:17] VITALS: BP 135/69
[2020-02-12] MEDS: normal saline 1000ml 1,000 ML IV SCH ×2 (03:03→20:28)
--- NOTE | 2020-02-12 03:56 | NUR ---
Pt had timed Vanco trough @ 0430. Attempted 2 sticks and was unable to obtain sample. Called lab for assistance and was ntoified that no one would be able to come to the floor to draw until 0500. Will not administer Vanco until lab is able to obtain sample.
[2020-02-12] MEDS ORDERED: VANCOMYCIN LEVEL IV ONE (04:30)
[2020-02-12] MEDS: VANCOmycin 1250MG/NS 250ml Bag 250 ML IV SCH ×3 (05:29→20:24)
[2020-02-12 05:38] LABS: HEMOGLOBIN 9.5 g/dl (14.0-17.9); RED BLOOD COUNT 3.24 X10'6 (4.70-6.10)
[2020-02-12 05:40] LABS: BASOPHILS # (AUTO) 0.1 X10'3 (0-0.2); BASOPHILS % (AUTO) 0.6 % (0-1); EOSINOPHILS # (AUTO) 0.2 X10'3 (0-0.9); HEMATOCRIT 28.2 % (42.0-52.0); LYMPHOCYTES # (AUTO) 0.8 X10'3 (1.1-4.8); LYMPHOCYTES % (AUTO) 5.5 % (21-51); MEAN CORPUSCULAR HEMOGLOBIN 29.2 PG (27.0-31.0); MEAN CORPUSCULAR HGB CONC 33.6 g/dL (33.0-36.5); MEAN PLATELET VOLUME 6.8 FL (7.4-10.4); MONOCYTES # (AUTO) 1.5 X10'3 (0-0.9); MONOCYTES % (AUTO) 10.3 % (2-12); NEUTROPHILS # (AUTO) 11.9 X10'3 (1.8-7.7); NEUTROPHILS % (AUTO) 82.6 % (42-75); PLATELET COUNT 438 X10'3 (140-440); RED CELL DISTRIBUTION WIDTH 14.2 % (11.5-14.5); WHITE BLOOD COUNT 14.5 X10'3 (4.5-11.0)
[2020-02-12 05:41] LABS: ALANINE AMINOTRANSFERASE 86 U/L (12-78); ALBUMIN 2.2 G/DL (3.4-5.0); ALBUMIN/GLOBULIN RATIO 0.5 (1.1-1.5); ALKALINE PHOSPHATASE 123 IU/L (46-116); ANION GAP 12 (8-16); ASPARTATE AMINO TRANSFERASE 81 U/L (10-37); BILIRUBIN,TOTAL 0.5 MG/DL (0.1-1.0); BLOOD UREA NITROGEN 11 MG/DL (7-18); BUN/CREATININE RATIO 13.8 (5.4-32.0); CALCIUM 8.8 MG/DL (8.5-10.1); CHLORIDE 101 MMOL/L (99-107); GLUCOSE 136 MG/DL (70-104); MAGNESIUM 1.5 MG/DL (1.5-2.4); POTASSIUM 3.8 MMOL/L (3.5-5.1); SODIUM 137 MMOL/L (135-145); TOTAL CARBON DIOXIDE 24.1 MMOL/L (24-32); TOTAL PROTEIN 6.7 G/DL (6.4-8.2); VANCOMYCIN,TROUGH 8.3 UG/ML (6.0-14.0); eGFR > 90 ML/MIN
[2020-02-12] MEDS: HYDROcodone/acetaminophen 10/325mg tab PO PRN ×4 (05:41→22:03)
--- NOTE | 2020-02-12 06:29 | NUR ---
Problems reprioritized. Patient report given, questions answered & plan of care reviewed with ROULA THOMAS.
--- NOTE | 2020-02-12 06:32 | NUR ---
Problems reprioritized. Patient report given, questions answered & plan of care reviewed with Newton THOMAS.
[2020-02-12 07:00] VITALS: BP 119/56
[2020-02-12] MEDS: K and/or MAG REPLACEMENT MC SCH ×2 (08:00→20:00)
[2020-02-12] MEDS: TESTOSTERONE TP SCH (08:00)
[2020-02-12] MEDS: lactobacillus rhamnosus 10,000 MMU CELLS/CAPSULE PO SCH ×2 (08:46→20:24)
[2020-02-12] MEDS: atorvastatin 20mg tablet PO SCH (08:46)
[2020-02-12] MEDS: clopidogrel 75mg tablet PO SCH (08:46)
[2020-02-12] MEDS: piperacillin/tazo 4.5gm/100ml 100 ML IV SCH ×3 (08:46→23:33)
[2020-02-12] MEDS: fenofibrate 145mg tablet PO SCH (08:46)
[2020-02-12] MEDS: buPROPion SR 150mg tablet PO SCH (08:46)
[2020-02-12] MEDS: HYDROmorphone inj. 0.5 MG/0.5 ML DISP.SYRIN IV PRN ×2 (08:56→13:56)
[2020-02-12 11:22] VITALS: BP 139/68
[2020-02-12] MEDS ORDERED: vancomycin/NS 1 GM ADD-VANTAGE 250 ML X 1 DOSE IV SCH (13:00)
--- NOTE | 2020-02-12 18:27 | NUR ---
Problems reprioritized. Patient report given, questions answered & plan of care reviewed with WILLIAM Zimmer.
[2020-02-12 20:00] VITALS: BP 125/65
[2020-02-12] MEDS: enoxaparin 40mg/0.4ml syringe SQ SCH (20:00)
[2020-02-12] MEDS: tamsulosin 0.4mg capsule PO SCH (20:24)
[2020-02-12] MEDS: insulin glargine (Lantus) pen - multi-dose SQ SCH (21:00)
[2020-02-13] VITALS (18 sets, daily range): BP systolic 128–154; BP diastolic 60–86
[2020-02-13] MEDS: HYDROcodone/acetaminophen 10/325mg tab PO PRN ×3 (03:30→11:34)
[2020-02-13] MEDS ORDERED: VANCOMYCIN LEVEL IV ONE (04:30)
[2020-02-13] MEDS: normal saline 1000ml 1,000 ML IV SCH ×2 (04:45→11:36)
[2020-02-13] MEDS: VANCOmycin 1250MG/NS 250ml Bag 250 ML IV SCH (05:59)
[2020-02-13 06:42] LABS: BASOPHILS # (AUTO) 0.1 X10'3 (0-0.2); BASOPHILS % (AUTO) 0.6 % (0-1); EOSINOPHILS # (AUTO) 0.2 X10'3 (0-0.9); HEMATOCRIT 27.1 % (42.0-52.0); HEMOGLOBIN 9.3 g/dl (14.0-17.9); LYMPHOCYTES # (AUTO) 0.8 X10'3 (1.1-4.8); LYMPHOCYTES % (AUTO) 5.3 % (21-51); MEAN CORPUSCULAR HEMOGLOBIN 29.4 PG (27.0-31.0); MEAN CORPUSCULAR HGB CONC 34.2 g/dL (33.0-36.5); MEAN PLATELET VOLUME 6.8 FL (7.4-10.4); MONOCYTES # (AUTO) 1.5 X10'3 (0-0.9); MONOCYTES % (AUTO) 10.1 % (2-12); NEUTROPHILS # (AUTO) 12.4 X10'3 (1.8-7.7); PLATELET COUNT 438 X10'3 (140-440); RED BLOOD COUNT 3.16 X10'6 (4.70-6.10); RED CELL DISTRIBUTION WIDTH 13.9 % (11.5-14.5); WHITE BLOOD COUNT 14.9 X10'3 (4.5-11.0)
[2020-02-13 06:55] LABS: ALANINE AMINOTRANSFERASE 92 U/L (12-78); ALBUMIN 2.1 G/DL (3.4-5.0); ALBUMIN/GLOBULIN RATIO 0.5 (1.1-1.5); ALKALINE PHOSPHATASE 129 IU/L (46-116); ANION GAP 11 (8-16); ASPARTATE AMINO TRANSFERASE 64 U/L (10-37); BILIRUBIN,TOTAL 0.3 MG/DL (0.1-1.0); BLOOD UREA NITROGEN 10 MG/DL (7-18); BUN/CREATININE RATIO 14.7 (5.4-32.0); CALCIUM 8.9 MG/DL (8.5-10.1); CHLORIDE 102 MMOL/L (99-107); CREATININE 0.68 MG/DL (0.60-1.10); GLUCOSE 179 MG/DL (70-104); POTASSIUM 3.6 MMOL/L (3.5-5.1); SODIUM 138 MMOL/L (135-145); TOTAL CARBON DIOXIDE 25.3 MMOL/L (24-32); TOTAL PROTEIN 6.7 G/DL (6.4-8.2); eGFR > 90 ML/MIN
[2020-02-13 06:56] LABS: MAGNESIUM 1.5 MG/DL (1.5-2.4); VANCOMYCIN,TROUGH 13.9 UG/ML (6.0-14.0)
--- NOTE | 2020-02-13 07:10 | NUR ---
Patient in room AMBER 346. I have received report from Goran THOMAS and had the opportunity to ask questions and assume patient care.
[2020-02-13] MEDS: enoxaparin 40mg/0.4ml syringe SQ SCH ×2 (07:12→20:21)
[2020-02-13] MEDS: clopidogrel 75mg tablet PO SCH (07:13)
[2020-02-13] MEDS: lactobacillus rhamnosus 10,000 MMU CELLS/CAPSULE PO SCH ×2 (07:29→20:21)
[2020-02-13] MEDS: fenofibrate 145mg tablet PO SCH (07:29)
[2020-02-13] MEDS: buPROPion SR 150mg tablet PO SCH (07:29)
[2020-02-13] MEDS: atorvastatin 20mg tablet PO SCH (07:29)
[2020-02-13] MEDS: insulin Lispro (HumaLOG) vial - multi-dose SQ SCH (07:43)
[2020-02-13] MEDS: piperacillin/tazo 4.5gm/100ml 100 ML IV SCH ×2 (07:44→16:57)
[2020-02-13] MEDS: K and/or MAG REPLACEMENT MC SCH ×2 (07:58→20:00)
[2020-02-13] MEDS: TESTOSTERONE TP SCH (07:58)
--- NOTE | 2020-02-13 09:27 | NUR ---
Called Dr Valiente and notified him patient did receive his Plavix yesterday 02/12/20. Patient did not received Lovenox or Plavix this morning. Received orders to do a Covid 19 rapid test prior to surgery today. Dr Valiente is aware that I have not done patients dressing change due to him going to surgery Dr Valiente is ok with that. Dr Valiente is aware patients WBC 14.[address] Valiente is still a go for patients surgery today.
[2020-02-13] MEDS ORDERED: cloNIDine hcl/PF 100mcg/ml inj ONE (12:44)
[2020-02-13] MEDS ORDERED: sevoflurane 250ml liquid IH ONE (12:46)
[2020-02-13] MEDS ORDERED: albumin (Human) 5% 250ml BOTTLE IV ONE (12:46)
[2020-02-13] MEDS ORDERED: fentaNYL/PF 50MCG/1 ML 2ML syringe ONE (12:54)
[2020-02-13] MEDS ORDERED: midazolam 2 mg/2 ml injection ONE (13:24)
[2020-02-13] MEDS ORDERED: ROPIVAcaine 0.5% (5mg/ml) 30ml vial ONE ×2 (13:30→13:31)
[2020-02-13] MEDS ORDERED: ePHEDrine 50MG/ML INJ. ONE (13:31)
[2020-02-13] MEDS ORDERED: LIDOcaine 2% (20mg/ml) 5ml vial ONE (13:31)
[2020-02-13] MEDS ORDERED: propofol inj 20 ML IV ONE (13:31)
[2020-02-13] MEDS ORDERED: 0.9 % SODIUM CHLORIDE 10 ML VIAL ONE (13:31)
[2020-02-13] MEDS ORDERED: dexamethasone sod phosphate 4mg/ml inj. ONE (13:31)
[2020-02-13] MEDS ORDERED: labetalol 20mg/4ml (5mg/ml) syringe IV PRN (13:45)
[2020-02-13] MEDS ORDERED: ringers solution, lacted 1,000 ML IV SCH (13:45)
[2020-02-13] MEDS ORDERED: acetaminophen 1,000mg/100ml IV 100 ML IV PRN (13:45)
[2020-02-13] MEDS ORDERED: ondansetron/PF 4mg/2ml inj IV PRN (13:45)
[2020-02-13] MEDS ORDERED: proCHLORperazine 10 MG/2 ml inj IV PRN (13:45)
[2020-02-13] MEDS ORDERED: meperidine/PF 25mg/ml syringe IV PRN (13:45)
[2020-02-13] MEDS ORDERED: hydrALAZINE 20mg/ml inj. IV PRN (13:45)
[2020-02-13] MEDS ORDERED: morphine 2 MG/ML inj. syringe IV PRN (13:45)
[2020-02-13] MEDS ORDERED: morphine 4 MG/ML inj SYRINge IV PRN (13:45)
[2020-02-13] MEDS ORDERED: fentaNYL/PF 50MCG/1 ML 2ML syringe IV PRN ×2 (13:45)
[2020-02-13] MEDS ORDERED: bacitracin 15gm ointment TP ONE (14:21)
[2020-02-13] MEDS ORDERED: morphine 10mg/ml inj. ONE (14:25)
[2020-02-13] MEDS ORDERED: ondansetron/PF 4mg/2ml inj ONE (14:25)
--- NOTE | 2020-02-13 15:08 | NUR ---
FROM OR ON BED WITH DR OSCAR AT SIDE. SKIN DAMP, WARM. VSS. IV PATENT. DRESSING TO STUMP GIUSEPPE WRAP, CDI. DENIES PAIN.
--- NOTE | 2020-02-13 15:38 | NUR ---
DOING WELL. VSS. PT IS VERY DIAPHORETIC. HE STATED THAT THIS IS NORMAL FOR HIM. STUMP DSG REMAINS CDI.
--- NOTE | 2020-02-13 16:08 | NUR ---
REPORT CALLED TO NURSE ANNABEL. TRANSPORTED WITHOUT INCIDENT TO ROOM 346B. STILL DIAPHORETIC. ACCU CHECK 174. IV PATENT. DENIES PAIN. STUMP ELEVATED ON PILLOW STILL. HEMOVAC NOT EMPTIED. DRESSING CDI.
[2020-02-13] MEDS: ondansetron/PF 4mg/2ml inj IV PRN (16:58)
--- NOTE | 2020-02-13 17:53 | NUR ---
Per Dr Kay cancel patients home medication for Testosterone due to patient family has not brought medication in and we don't carry it
--- NOTE | 2020-02-13 18:32 | NUR ---
Problems reprioritized. Patient report given, questions answered & plan of care reviewed with Goran THOMAS.
[2020-02-13] MEDS: tamsulosin 0.4mg capsule PO SCH (20:21)
[2020-02-13] MEDS: insulin glargine (Lantus) pen - multi-dose SQ SCH (21:35)
[2020-02-14 00:08] VITALS: BP 142/84
[2020-02-14] MEDS: piperacillin/tazo 4.5gm/100ml 100 ML IV SCH (00:19)
[2020-02-14] MEDS: normal saline 1000ml 1,000 ML IV SCH ×3 (00:45→15:46)
[2020-02-14 06:24] LABS: BASOPHILS % (AUTO) 0.1 % (0-1); EOSINOPHILS % (AUTO) 0 % (0-6); HEMATOCRIT 26.4 % (42.0-52.0); HEMOGLOBIN 8.8 g/dl (14.0-17.9); LYMPHOCYTES # (AUTO) 0.4 X10'3 (1.1-4.8); LYMPHOCYTES % (AUTO) 2.7 % (21-51); MEAN CORPUSCULAR HEMOGLOBIN 28.8 PG (27.0-31.0); MEAN CORPUSCULAR HGB CONC 33.5 g/dL (33.0-36.5); MEAN CORPUSCULAR VOLUME 85.9 FL (78-98); MEAN PLATELET VOLUME 7.1 FL (7.4-10.4); MONOCYTES # (AUTO) 1.5 X10'3 (0-0.9); NEUTROPHILS # (AUTO) 14.3 X10'3 (1.8-7.7); NEUTROPHILS % (AUTO) 88.2 % (42-75); PLATELET COUNT 408 X10'3 (140-440); RED BLOOD COUNT 3.07 X10'6 (4.70-6.10); RED CELL DISTRIBUTION WIDTH 13.8 % (11.5-14.5); WHITE BLOOD COUNT 16.2 X10'3 (4.5-11.0)
--- NOTE | 2020-02-14 06:51 | NUR ---
Patient in room AMBER 346. I have received report from Goran THOMAS and had the opportunity to ask questions and assume patient care.
[2020-02-14 07:00] VITALS: BP 142/77
[2020-02-14 07:04] LABS: ALANINE AMINOTRANSFERASE 64 U/L (12-78); ALBUMIN 2.1 G/DL (3.4-5.0); ALBUMIN/GLOBULIN RATIO 0.5 (1.1-1.5); ALKALINE PHOSPHATASE 102 IU/L (46-116); ANION GAP 16 (8-16); ASPARTATE AMINO TRANSFERASE 29 U/L (10-37); BILIRUBIN,TOTAL 0.4 MG/DL (0.1-1.0); BLOOD UREA NITROGEN 21 MG/DL (7-18); BUN/CREATININE RATIO 11.5 (5.4-32.0); CALCIUM 8.6 MG/DL (8.5-10.1); CHLORIDE 100 MMOL/L (99-107); CREATININE 1.83 MG/DL (0.60-1.10); GLUCOSE 251 MG/DL (70-104); MAGNESIUM 1.6 MG/DL (1.5-2.4); POTASSIUM 4.2 MMOL/L (3.5-5.1); SODIUM 137 MMOL/L (135-145); TOTAL CARBON DIOXIDE 20.7 MMOL/L (24-32); TOTAL PROTEIN 6.4 G/DL (6.4-8.2); eGFR 38 ML/MIN
[2020-02-14] MEDS: HYDROcodone/acetaminophen 10/325mg tab PO PRN ×4 (07:15→19:48)
[2020-02-14] MEDS: K and/or MAG REPLACEMENT MC SCH ×2 (08:00→19:36)
[2020-02-14] MEDS: insulin Lispro (HumaLOG) vial - multi-dose SQ SCH ×3 (08:31→19:43)
[2020-02-14] MEDS: fenofibrate 145mg tablet PO SCH (08:33)
[2020-02-14] MEDS: lactobacillus rhamnosus 10,000 MMU CELLS/CAPSULE PO SCH ×2 (08:33→19:48)
[2020-02-14] MEDS: atorvastatin 20mg tablet PO SCH (08:34)
[2020-02-14] MEDS: buPROPion SR 150mg tablet PO SCH (08:34)
[2020-02-14] MEDS: clopidogrel 75mg tablet PO SCH (10:26)
[2020-02-14 12:03] VITALS: BP 127/68
[2020-02-14] MEDS ORDERED: VANCOMYCIN LEVEL IV ONE (12:30)
--- NOTE | 2020-02-14 13:42 | NUR ---
PAGER ID: [phone] MESSAGE: Maricarmen Surg [phone] Re: [facility]
[2020-02-14] MEDS: piperacillin/tazo 3.375gm/50ml 50 ML IV SCH (15:47)
[2020-02-14] MEDS: HYDROmorphone inj. 0.5 MG/0.5 ML DISP.SYRIN IV PRN ×2 (17:02→21:59)
--- NOTE | 2020-02-14 17:54 | NUR ---
PAGER ID: [phone] MESSAGE: Maricarmen Schroeder [phone] Re: Miguel Angel pain medications are not working please call Addendum: 02/14/20 at 1801 by Maricarmen Brown RN Received orders for Gabapentin 300mg PO TID
--- NOTE | 2020-02-14 18:52 | NUR ---
Patient in room AMBER 346. I have received report from Alannah THOMAS and had the opportunity to ask questions and assume patient care.
--- NOTE | 2020-02-14 18:55 | NUR ---
Patient in room AMBER 346. I have received report from Maricarmen THOMAS and had the opportunity to ask questions and assume patient care.
[2020-02-14 20:00] VITALS: BP 133/69
[2020-02-14] MEDS: insulin glargine (Lantus) pen - multi-dose SQ SCH (21:51)
[2020-02-14] MEDS: gabapentin 300mg capsule PO SCH (21:52)
[2020-02-14] MEDS: tamsulosin 0.4mg capsule PO SCH (21:52)
[2020-02-15] VITALS: BP 145/77
[2020-02-15] MEDS: piperacillin/tazo 3.375gm/50ml 50 ML IV SCH ×4 (00:09→23:57)
[2020-02-15] MEDS: HYDROcodone/acetaminophen 10/325mg tab PO PRN ×4 (00:17→18:29)
--- NOTE | 2020-02-15 00:55 | NUR ---
pt has only voided 50 ml since 1799. bladder scan showed 5ml. will continue to monitor, encourage pt to void and bladderscan again if needed Addendum: 02/15/20 at 0056 by Josie Reynolds RN Amended: Links added.
[2020-02-15] MEDS: normal saline 1000ml 1,000 ML IV SCH ×3 (02:30→23:57)
--- NOTE | 2020-02-15 06:32 | NUR ---
Problems reprioritized. Patient report given, questions answered & plan of care reviewed with Em THOMAS.
[2020-02-15 06:36] LABS: BASOPHILS # (AUTO) 0.1 X10'3 (0-0.2); BASOPHILS % (AUTO) 0.6 % (0-1); EOSINOPHILS # (AUTO) 0.1 X10'3 (0-0.9); EOSINOPHILS % (AUTO) 0.7 % (0-6); HEMATOCRIT 24.3 % (42.0-52.0); HEMOGLOBIN 8.2 g/dl (14.0-17.9); LYMPHOCYTES # (AUTO) 0.7 X10'3 (1.1-4.8); LYMPHOCYTES % (AUTO) 4.5 % (21-51); MEAN CORPUSCULAR HGB CONC 33.8 g/dL (33.0-36.5); MEAN PLATELET VOLUME 7.1 FL (7.4-10.4); MONOCYTES # (AUTO) 1.1 X10'3 (0-0.9); MONOCYTES % (AUTO) 7.9 % (2-12); NEUTROPHILS # (AUTO) 12.6 X10'3 (1.8-7.7); NEUTROPHILS % (AUTO) 86.3 % (42-75); PLATELET COUNT 414 X10'3 (140-440); RED BLOOD COUNT 2.82 X10'6 (4.70-6.10); WHITE BLOOD COUNT 14.6 X10'3 (4.5-11.0)
[2020-02-15 06:53] LABS: ALANINE AMINOTRANSFERASE 45 U/L (12-78); ALBUMIN 1.8 G/DL (3.4-5.0); ALBUMIN/GLOBULIN RATIO 0.4 (1.1-1.5); ALKALINE PHOSPHATASE 87 IU/L (46-116); ANION GAP 8 (8-16); ASPARTATE AMINO TRANSFERASE 20 U/L (10-37); BILIRUBIN,TOTAL 0.3 MG/DL (0.1-1.0); BLOOD UREA NITROGEN 26 MG/DL (7-18); BUN/CREATININE RATIO 7.8 (5.4-32.0); CALCIUM 8.1 MG/DL (8.5-10.1); CHLORIDE 103 MMOL/L (99-107); CREATININE 3.33 MG/DL (0.60-1.10); GLUCOSE 175 MG/DL (70-104); MAGNESIUM 1.7 MG/DL (1.5-2.4); POTASSIUM 3.6 MMOL/L (3.5-5.1); SODIUM 135 MMOL/L (135-145); eGFR 19 ML/MIN
--- NOTE | 2020-02-15 07:00 | NUR ---
Patient in room AMBER 346. I have received report from Kathy THOMAS and had the opportunity to ask questions and assume patient care.
[2020-02-15 08:00] VITALS: BP 131/70
[2020-02-15] MEDS: K and/or MAG REPLACEMENT MC SCH ×2 (08:00→19:19)
[2020-02-15] MEDS: clopidogrel 75mg tablet PO SCH (08:35)
[2020-02-15] MEDS: fenofibrate 145mg tablet PO SCH (08:35)
[2020-02-15] MEDS: buPROPion SR 150mg tablet PO SCH (08:35)
[2020-02-15] MEDS: lactobacillus rhamnosus 10,000 MMU CELLS/CAPSULE PO SCH ×2 (08:35→19:20)
[2020-02-15] MEDS: gabapentin 300mg capsule PO SCH ×2 (08:35→13:47)
[2020-02-15] MEDS: atorvastatin 20mg tablet PO SCH (08:36)
[2020-02-15] MEDS: insulin Lispro (HumaLOG) vial - multi-dose SQ SCH ×3 (09:39→19:26)
[2020-02-15 12:00] VITALS: BP 137/59
--- NOTE | 2020-02-15 15:00 | NUR ---
NO new notes from Dr israel on pt's care. Pt was not seen by Dr israel today. Charge nurse aware.
--- NOTE | 2020-02-15 16:58 | NUR ---
Patient in room AMBER 346. I have received report from Gayle THOMAS and had the opportunity to ask questions and assume patient care.
[2020-02-15 18:00] VITALS: BP 121/66
--- NOTE | 2020-02-15 18:02 | NUR ---
Problems reprioritized. Patient report given, questions answered & plan of care reviewed with Josie THOMAS.
[2020-02-15] MEDS: enoxaparin 40mg/0.4ml syringe SQ SCH (19:21)
[2020-02-15] MEDS: gabapentin 400mg capsule PO SCH (19:21)
[2020-02-15] MEDS: tamsulosin 0.4mg capsule PO SCH (21:09)
[2020-02-15] MEDS: insulin glargine (Lantus) pen - multi-dose SQ SCH (21:13)
[2020-02-15 22:24] VITALS: BP 121/66
[2020-02-16] VITALS: BP 130/71
[2020-02-16] MEDS: HYDROcodone/acetaminophen 10/325mg tab PO PRN ×3 (02:00→20:52)
--- NOTE | 2020-02-16 06:07 | NUR ---
Problems reprioritized. Patient report given, questions answered & plan of care reviewed with Gayle THOMAS.
[2020-02-16 06:09] LABS: BASOPHILS # (AUTO) 0.1 X10'3 (0-0.2); BASOPHILS % (AUTO) 0.5 % (0-1); EOSINOPHILS # (AUTO) 0.1 X10'3 (0-0.9); EOSINOPHILS % (AUTO) 1.1 % (0-6); HEMATOCRIT 22.8 % (42.0-52.0); HEMOGLOBIN 7.7 g/dl (14.0-17.9); LYMPHOCYTES # (AUTO) 0.7 X10'3 (1.1-4.8); LYMPHOCYTES % (AUTO) 5.4 % (21-51); MEAN CORPUSCULAR HEMOGLOBIN 28.9 PG (27.0-31.0); MEAN CORPUSCULAR HGB CONC 33.8 g/dL (33.0-36.5); MEAN CORPUSCULAR VOLUME 85.6 FL (78-98); MONOCYTES # (AUTO) 1.3 X10'3 (0-0.9); NEUTROPHILS # (AUTO) 10.8 X10'3 (1.8-7.7); PLATELET COUNT 376 X10'3 (140-440); RED BLOOD COUNT 2.66 X10'6 (4.70-6.10); RED CELL DISTRIBUTION WIDTH 14.2 % (11.5-14.5)
[2020-02-16 06:13] LABS: ALBUMIN 1.8 G/DL (3.4-5.0); ANION GAP 13 (8-16); BLOOD UREA NITROGEN 31 MG/DL (7-18); BUN/CREATININE RATIO 6.4 (5.4-32.0); CALCIUM 8.1 MG/DL (8.5-10.1); CHLORIDE 101 MMOL/L (99-107); CREATININE 4.85 MG/DL (0.60-1.10); GLUCOSE 104 MG/DL (70-104); MAGNESIUM 1.5 MG/DL (1.5-2.4); POTASSIUM 3.6 MMOL/L (3.5-5.1); SODIUM 134 MMOL/L (135-145); TOTAL CARBON DIOXIDE 20.2 MMOL/L (24-32); eGFR 12 ML/MIN
--- NOTE | 2020-02-16 06:32 | NUR ---
Patient in room AMBER 346. I have received report from Kathy THOMAS and had the opportunity to ask questions and assume patient care.
[2020-02-16 07:20] VITALS: BP 142/79
[2020-02-16] MEDS: K and/or MAG REPLACEMENT MC SCH ×2 (08:00→20:00)
[2020-02-16] MEDS: buPROPion SR 150mg tablet PO SCH (08:23)
[2020-02-16] MEDS: piperacillin/tazo 3.375gm/50ml 50 ML IV SCH (08:23)
[2020-02-16] MEDS: clopidogrel 75mg tablet PO SCH (08:23)
[2020-02-16] MEDS: atorvastatin 20mg tablet PO SCH (08:23)
[2020-02-16] MEDS: lactobacillus rhamnosus 10,000 MMU CELLS/CAPSULE PO SCH ×2 (08:23→20:43)
[2020-02-16] MEDS: fenofibrate 145mg tablet PO SCH (08:23)
[2020-02-16] MEDS: gabapentin 400mg capsule PO SCH (08:23)
[2020-02-16] MEDS: insulin Lispro (HumaLOG) vial - multi-dose SQ SCH ×3 (09:15→19:28)
[2020-02-16 12:00] VITALS: BP 142/79
--- NOTE | 2020-02-16 12:57 | NUR ---
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 PO intake pre-op was 75-100% which decreased to 25% post-op, however back up to 75% at dinner last night with 100% PO intake at breakfast this morning. Pt has already been seen by RD where pt declined ONS. Pt has RD contact information and has been encouraged to reach out for food preferences. [facility] 02/14. Will continue to follow and monitor need for additional protein pending further trends in PO intake. Rec: 1. continue carb controlled diet 2. consider Chetan ONS post-op if pt becomes agreeable given healing needs; monitor need for additional protein 3. routine bowel care 4. scaled wt this admit Addendum: 02/16/20 at [address] Amended: Links added.
[2020-02-16] MEDS: normal saline 1000ml 1,000 ML IV SCH ×2 (12:59→21:43)
[2020-02-16] MEDS: heparin, porcine 5000 units/ml vial SQ SCH (16:22)
[2020-02-16 17:30] LABS: CLARITY,URINE TURBID (Clear); COLOR,URINE YELLOW (Yellow); GLUCOSE, URINE NEGATIVE (Neg); KETONES,URINE NEGATIVE (Neg); LEUKOCYTE ESTERASE ,URINE SMALL (Neg); NITRITES, URINE NEGATIVE (Neg); OCCULT BLOOD,URINE LARGE (Neg); PH,URINE 5.5 (4.8-8.0); PROTEIN,URINE >=300 mg/dl (Neg); UROBILINOGEN,URINE 0.2 E.U/dL (0.2-1.0)
[2020-02-16 17:34] LABS: UA COLLECTION TYPE NON-SPECIFIED
--- NOTE | 2020-02-16 17:35 | NUR ---
Pt is a direct admit from wound care, admitted from wound care by Dr Hollingsworth. Took over care for Pt. Pt is A & O x4 and in no apparent distressed, pt had just received morphine. Pt's IV is patent and flushes well. IV fluids started, NS at 20ml/hr. Pt's pictures were taken and 2 RN skin test was done. Jeaneth Garrison, darted pt and reconcile meds. Addendum: 02/16/20 at 1847 by Gayle Walker RN wrong pt
[2020-02-16 17:44] LABS: TOTAL PROTEIN,URINE RANDOM 359.5 MG/DL
[2020-02-16 18:00] VITALS: BP 135/70
[2020-02-16 18:10] LABS: BACTERIA,URINE NONE SEEN /HPF (Neg); RBC,URINE 50-100 /HPF (0-2); WBC,URINE 50-100 /HPF (0-4)
[2020-02-16 18:11] LABS: SQUAMOUS EPITHELIAL CELL,UR MANY /LPF (FEW)
[2020-02-16 18:12] LABS: AMORPHOUS URATES 4+; TRANSITIONAL EPI CELLS,URINE MODERATE /HPF
[2020-02-16 18:14] LABS: COARSE GRANULAR CAST 0-3 /LPF (NEGATIVE)
[2020-02-16 18:21] LABS: RENAL CELLS, URINE MODERATE /HPF
[2020-02-16 18:22] LABS: UA EOSINOPHILS NO EOS /HPF
--- NOTE | 2020-02-16 18:22 | NUR ---
Problems reprioritized. Patient report given, questions answered & plan of care reviewed with Chato THOMAS.
[2020-02-16 18:40] VITALS: BP 135/70
[2020-02-16] MEDS: tamsulosin 0.4mg capsule PO SCH (20:43)
[2020-02-16] MEDS: gabapentin 100mg capsule PO SCH (20:44)
[2020-02-16] MEDS: insulin glargine (Lantus) pen - multi-dose SQ SCH (21:55)
[2020-02-17] VITALS: BP 130/74
[2020-02-17] MEDS: heparin, porcine 5000 units/ml vial SQ SCH ×4 (00:09→22:13)
--- NOTE | 2020-02-17 06:56 | NUR ---
Patient in room AMBER 346. I have received report from Chato THOMAS and had the opportunity to ask questions and assume patient care.
[2020-02-17 07:00] VITALS: BP 143/80
--- NOTE | 2020-02-17 07:00 | NUR ---
Problems reprioritized. Patient report given, questions answered & plan of care reviewed with DELILAH. Addendum: 02/17/20 at 0700 by Crow Patel RN Amended: Links added.
[2020-02-17] MEDS: HYDROcodone/acetaminophen 5mg/325mg tablet PO PRN (07:14)
[2020-02-17 07:33] LABS: MAGNESIUM 1.7 MG/DL (1.5-2.4)
[2020-02-17] MEDS: K and/or MAG REPLACEMENT MC SCH ×2 (08:00→20:00)
[2020-02-17] MEDS: normal saline 1000ml 1,000 ML IV SCH ×2 (08:45→16:56)
[2020-02-17 09:12] LABS: BASOPHILS # (AUTO) 0.1 X10'3 (0-0.2); BASOPHILS % (AUTO) 0.6 % (0-1); EOSINOPHILS # (AUTO) 0.1 X10'3 (0-0.9); EOSINOPHILS % (AUTO) 1.1 % (0-6); HEMATOCRIT 23.2 % (42.0-52.0); HEMOGLOBIN 7.6 g/dl (14.0-17.9); LYMPHOCYTES # (AUTO) 0.6 X10'3 (1.1-4.8); LYMPHOCYTES % (AUTO) 5.1 % (21-51); MEAN CORPUSCULAR HEMOGLOBIN 28.3 PG (27.0-31.0); MEAN CORPUSCULAR VOLUME 85.7 FL (78-98); MEAN PLATELET VOLUME 7.2 FL (7.4-10.4); MONOCYTES # (AUTO) 1.2 X10'3 (0-0.9); MONOCYTES % (AUTO) 10.4 % (2-12); NEUTROPHILS # (AUTO) 9.7 X10'3 (1.8-7.7); NEUTROPHILS % (AUTO) 82.8 % (42-75); PLATELET COUNT 362 X10'3 (140-440); RED CELL DISTRIBUTION WIDTH 14.2 % (11.5-14.5); WHITE BLOOD COUNT 11.7 X10'3 (4.5-11.0)
[2020-02-17] MEDS: buPROPion SR 150mg tablet PO SCH (09:13)
[2020-02-17] MEDS: fenofibrate 145mg tablet PO SCH (09:13)
[2020-02-17] MEDS: gabapentin 100mg capsule PO SCH (09:13)
[2020-02-17] MEDS: clopidogrel 75mg tablet PO SCH (09:13)
[2020-02-17] MEDS: atorvastatin 20mg tablet PO SCH (09:13)
[2020-02-17] MEDS: lactobacillus rhamnosus 10,000 MMU CELLS/CAPSULE PO SCH ×2 (09:22→20:17)
[2020-02-17] MEDS: insulin Lispro (HumaLOG) vial - multi-dose SQ SCH (09:27)
[2020-02-17 09:39] LABS: ALANINE AMINOTRANSFERASE 33 U/L (12-78); ALBUMIN 1.8 G/DL (3.4-5.0); ALBUMIN/GLOBULIN RATIO 0.4 (1.1-1.5); ALKALINE PHOSPHATASE 91 IU/L (46-116); ANION GAP 15 (8-16); ASPARTATE AMINO TRANSFERASE 20 U/L (10-37); BILIRUBIN,TOTAL 0.3 MG/DL (0.1-1.0); BLOOD UREA NITROGEN 39 MG/DL (7-18); CALCIUM 8.1 MG/DL (8.5-10.1); CHLORIDE 99 MMOL/L (99-107); CREATININE 6.49 MG/DL (0.60-1.10); GLUCOSE 88 MG/DL (70-104); PHOSPHORUS 5.7 MG/DL (2.3-4.5); POTASSIUM 3.8 MMOL/L (3.5-5.1); SODIUM 132 MMOL/L (135-145); TOTAL CARBON DIOXIDE 17.6 MMOL/L (24-32); TOTAL PROTEIN 6.1 G/DL (6.4-8.2); VANCOMYCIN,RANDOM 39.8 UG/ML; eGFR 9 ML/MIN
[2020-02-17 12:00] VITALS: BP 152/85
--- NOTE | 2020-02-17 12:56 | NUR ---
PAGER ID: [phone] MESSAGE: re: 346B, MichelleYuniel Pt is not feeling well today, tremulous, pale, nausea, labs are worse today. I'm not comfortable with how pt is looking. Have you spoken with Dr Johnson or would you like me to call him? Thank you, Karen [phone] wellness consultant aware. VSS, BGs WNL. will continue to monitor.
[2020-02-17] MEDS: ondansetron/PF 4mg/2ml inj IV PRN ×2 (13:20→20:58)
--- NOTE | 2020-02-17 13:32 | NUR ---
spoke with Dr Hollingsworth, aware of pt's labs, N/V, urine output of 200cc, mentation, states Dr Johnson is aware as well, no new orders. appliance line assembler aware. Will continue to monitor.
--- NOTE | 2020-02-17 14:30 | NUR ---
no insulin given for lunchtime dose - Pt BG 95, did not eat lunch. will continue to monitor.
[2020-02-17 17:20] LABS: OCCULT BLOOD STOOL NEGATIVE (Neg)
--- NOTE | 2020-02-17 18:32 | NUR ---
Problems reprioritized. Patient report given, questions answered & plan of care reviewed with Chato THOMAS.
[2020-02-17 20:00] VITALS: BP 141/75
[2020-02-17] MEDS: tamsulosin 0.4mg capsule PO SCH (20:17)
[2020-02-17] MEDS: insulin glargine (Lantus) pen - multi-dose SQ SCH (21:00)
[2020-02-18] VITALS (8 sets, daily range): BP systolic 130–162; BP diastolic 68–96
[2020-02-18] MEDS ORDERED: proCHLORperazine 10 MG/2 ml inj IV PRN (00:05)
[2020-02-18] MEDS: normal saline 1000ml 1,000 ML IV SCH ×2 (02:45→15:15)
[2020-02-18 06:17] LABS: BASOPHILS # (AUTO) 0.1 X10'3 (0-0.2); BASOPHILS % (AUTO) 0.4 % (0-1); EOSINOPHILS % (AUTO) 0.1 % (0-6); HEMATOCRIT 23.3 % (42.0-52.0); HEMOGLOBIN 7.9 g/dl (14.0-17.9); LYMPHOCYTES # (AUTO) 0.3 X10'3 (1.1-4.8); LYMPHOCYTES % (AUTO) 2.3 % (21-51); MEAN CORPUSCULAR HEMOGLOBIN 29.2 PG (27.0-31.0); MEAN CORPUSCULAR VOLUME 85.9 FL (78-98); MEAN PLATELET VOLUME 7.2 FL (7.4-10.4); MONOCYTES # (AUTO) 0.8 X10'3 (0-0.9); MONOCYTES % (AUTO) 5.5 % (2-12); NEUTROPHILS # (AUTO) 13.2 X10'3 (1.8-7.7); NEUTROPHILS % (AUTO) 91.7 % (42-75); PLATELET COUNT 389 X10'3 (140-440); RED BLOOD COUNT 2.72 X10'6 (4.70-6.10); RED CELL DISTRIBUTION WIDTH 14.1 % (11.5-14.5); WHITE BLOOD COUNT 14.4 X10'3 (4.5-11.0)
--- NOTE | 2020-02-18 06:37 | NUR ---
Problems reprioritized. Patient report given, questions answered & plan of care reviewed with HALLIE. Addendum: 02/18/20 at 0637 by Crow Patel RN Amended: Links added.
[2020-02-18 06:38] LABS: ALANINE AMINOTRANSFERASE 36 U/L (12-78); ALBUMIN 1.8 G/DL (3.4-5.0); ALBUMIN/GLOBULIN RATIO 0.4 (1.1-1.5); ALKALINE PHOSPHATASE 92 IU/L (46-116); ANION GAP 17 (8-16); ASPARTATE AMINO TRANSFERASE 19 U/L (10-37); BILIRUBIN,TOTAL 0.4 MG/DL (0.1-1.0); BLOOD UREA NITROGEN 45 MG/DL (7-18); BUN/CREATININE RATIO 6.2 (5.4-32.0); CALCIUM 8.4 MG/DL (8.5-10.1); CHLORIDE 99 MMOL/L (99-107); CREATININE 7.28 MG/DL (0.60-1.10); GLUCOSE 132 MG/DL (70-104); MAGNESIUM 1.8 MG/DL (1.5-2.4); PHOSPHORUS 7.2 MG/DL (2.3-4.5); POTASSIUM 3.9 MMOL/L (3.5-5.1); SODIUM 132 MMOL/L (135-145); TOTAL PROTEIN 6.2 G/DL (6.4-8.2); eGFR 8 ML/MIN
[2020-02-18] MEDS: gabapentin 100mg capsule PO SCH (07:32)
[2020-02-18] MEDS: fenofibrate 145mg tablet PO SCH (07:32)
[2020-02-18] MEDS: HYDROcodone/acetaminophen 10/325mg tab PO PRN ×2 (07:32→20:27)
[2020-02-18] MEDS: lactobacillus rhamnosus 10,000 MMU CELLS/CAPSULE PO SCH ×2 (07:32→20:27)
[2020-02-18] MEDS: buPROPion SR 150mg tablet PO SCH (07:32)
[2020-02-18] MEDS: atorvastatin 20mg tablet PO SCH (07:32)
[2020-02-18] MEDS: clopidogrel 75mg tablet PO SCH (08:00)
[2020-02-18] MEDS: K and/or MAG REPLACEMENT MC SCH ×2 (08:00→20:00)
[2020-02-18] MEDS: heparin, porcine 5000 units/ml vial SQ SCH ×2 (08:00→18:38)
--- NOTE | 2020-02-18 13:35 | NUR ---
Pt out to IR for procedure.
--- NOTE | 2020-02-18 14:21 | NUR ---
Pt back from IR TDC placed to Right upper chest. Pt A&O x4. No c/o pain or discomfort. will monitor per protocol.
[2020-02-18] MEDS ORDERED: normal saline 1000ml 250 ML IV PRN (15:45)
[2020-02-18] MEDS ORDERED: heparin 1,000unit/ml 10ml vial 10 ML IV ONE (15:45)
[2020-02-18] MEDS ORDERED: epoetin 20,000 units/ml inj IV ONE (15:45)
[2020-02-18] MEDS ORDERED: heparin 1,000 units/ml 10ml inj HE ONE ×2 (15:50)
--- NOTE | 2020-02-18 19:05 | NUR ---
Problems reprioritized. Patient report given, questions answered & plan of care reviewed with WILLIAM Jaffe.
--- NOTE | 2020-02-18 19:08 | NUR ---
Patient in room AMBER 346. I have received report from Karen THOMAS and had the opportunity to ask questions and assume patient care.
[2020-02-18] MEDS: tamsulosin 0.4mg capsule PO SCH (20:27)
[2020-02-18] MEDS: insulin glargine (Lantus) pen - multi-dose SQ SCH (20:56)
[2020-02-19] MEDS: normal saline 1000ml 1,000 ML IV SCH ×3 (00:45→20:32)
--- NOTE | 2020-02-19 03:00 | NUR ---
At approximately 0230 the patient was found on the floor at bedside by cruise staff member. Patient had an incontinent bowel movement. He stated that he thought he was at home and attempted to get himself out of bed, thereby sliding in his own feces off the edge of the bed onto the floor. He did not hit his head and has no open injuries from the fall. He was assisted back to bed, cleaned up and an assessment was performed. Patient had no signs of distress or injury. Charge nurse notified, hospitalist paged and nursing supervisor rubber covering called. Fall care plan added to patient process plan, bed alarm turned on and fall band placed on patient. Will continue to monitor.
--- NOTE | 2020-02-19 06:23 | NUR ---
Problems reprioritized. Patient report given, questions answered & plan of care reviewed with Karen THOMAS.
--- NOTE | 2020-02-19 06:57 | NUR ---
Patient in room AMBER 346. I have received report from WILLIAM Jaffe and had the opportunity to ask questions and assume patient care.
[2020-02-19 07:24] LABS: BASOPHILS # (AUTO) 0.1 X10'3 (0-0.2); BASOPHILS % (AUTO) 0.4 % (0-1); EOSINOPHILS % (AUTO) 0 % (0-6); HEMATOCRIT 22.9 % (42.0-52.0); HEMOGLOBIN 7.8 g/dl (14.0-17.9); LYMPHOCYTES # (AUTO) 0.4 X10'3 (1.1-4.8); LYMPHOCYTES % (AUTO) 2.4 % (21-51); MEAN CORPUSCULAR HEMOGLOBIN 28.8 PG (27.0-31.0); MEAN CORPUSCULAR HGB CONC 34.1 g/dL (33.0-36.5); MEAN CORPUSCULAR VOLUME 84.3 FL (78-98); MEAN PLATELET VOLUME 7.3 FL (7.4-10.4); MONOCYTES # (AUTO) 1.2 X10'3 (0-0.9); MONOCYTES % (AUTO) 6.9 % (2-12); NEUTROPHILS # (AUTO) 15.2 X10'3 (1.8-7.7); NEUTROPHILS % (AUTO) 90.3 % (42-75); PLATELET COUNT 447 X10'3 (140-440); RED BLOOD COUNT 2.72 X10'6 (4.70-6.10); RED CELL DISTRIBUTION WIDTH 14.3 % (11.5-14.5); WHITE BLOOD COUNT 16.9 X10'3 (4.5-11.0)
[2020-02-19 07:26] LABS: ALANINE AMINOTRANSFERASE 29 U/L (12-78); ALBUMIN 1.9 G/DL (3.4-5.0); ALBUMIN/GLOBULIN RATIO 0.4 (1.1-1.5); ALKALINE PHOSPHATASE 90 IU/L (46-116); ANION GAP 15 (8-16); ASPARTATE AMINO TRANSFERASE 16 U/L (10-37); BILIRUBIN,TOTAL 0.3 MG/DL (0.1-1.0); BLOOD UREA NITROGEN 42 MG/DL (7-18); BUN/CREATININE RATIO 6.2 (5.4-32.0); CALCIUM 8.2 MG/DL (8.5-10.1); CHLORIDE 100 MMOL/L (99-107); CREATININE 6.74 MG/DL (0.60-1.10); GLUCOSE 190 MG/DL (70-104); MAGNESIUM 1.7 MG/DL (1.5-2.4); PHOSPHORUS 6.4 MG/DL (2.3-4.5); SODIUM 134 MMOL/L (135-145); TOTAL CARBON DIOXIDE 18.9 MMOL/L (24-32); TOTAL PROTEIN 6.3 G/DL (6.4-8.2); eGFR 8 ML/MIN
[2020-02-19] MEDS: atorvastatin 20mg tablet PO SCH (07:42)
[2020-02-19] MEDS: gabapentin 100mg capsule PO SCH (07:42)
[2020-02-19] MEDS: buPROPion SR 150mg tablet PO SCH (07:42)
[2020-02-19] MEDS: lactobacillus rhamnosus 10,000 MMU CELLS/CAPSULE PO SCH ×2 (07:42→20:32)
[2020-02-19] MEDS: clopidogrel 75mg tablet PO SCH (07:42)
[2020-02-19] MEDS: fenofibrate 145mg tablet PO SCH (07:42)
[2020-02-19] MEDS: heparin, porcine 5000 units/ml vial SQ SCH ×3 (07:47→15:19)
[2020-02-19 08:00] VITALS: BP 145/85
[2020-02-19] MEDS: K and/or MAG REPLACEMENT MC SCH ×2 (08:00→20:00)
[2020-02-19 12:00] VITALS: BP 158/79
[2020-02-19] MEDS: insulin Lispro (HumaLOG) vial - multi-dose SQ SCH (13:52)
[2020-02-19] MEDS: HYDROcodone/acetaminophen 10/325mg tab PO PRN (15:18)
--- NOTE | 2020-02-19 15:52 | NUR ---
PAGER ID: [phone] MESSAGE: Karyn/surgical [id number]. Pt: Miguel Angel. Rm: 346-B. CXR shows pulmonary edema and Rt pleural effusion. Do you want to stop IV SN 100? thanks
[2020-02-19] MEDS ORDERED: epoetin 20,000 units/ml inj IV ONE (16:05)
[2020-02-19] MEDS ORDERED: heparin 1,000 units/ml 10ml inj HE ONE ×2 (16:05)
[2020-02-19] MEDS ORDERED: normal saline 1000ml 250 ML IV PRN (16:05)
[2020-02-19] MEDS ORDERED: heparin 1,000unit/ml 10ml vial 10 ML IV ONE (16:05)
[2020-02-19 18:30] VITALS: BP 143/82
--- NOTE | 2020-02-19 18:30 | NUR ---
Patient in room AMBER 346A. I have received report from WILLIAM Jones and had the opportunity to ask questions and assume patient care. Patient receiving dialysis. catering coordinator at bedside.
--- NOTE | 2020-02-19 18:38 | NUR ---
Problems reprioritized. Patient report given, questions answered & plan of care reviewed with WILLIAM Gardner.
--- NOTE | 2020-02-19 19:12 | NUR ---
pt getting dialysis now, has not had dinner. dinner ordered from kitchen. Addendum: 02/19/20 at 1913 by Leon Barcenas RN Amended: Links added.
[2020-02-19] MEDS: tamsulosin 0.4mg capsule PO SCH (20:32)
[2020-02-19] MEDS: insulin glargine (Lantus) pen - multi-dose SQ SCH (22:51)
[2020-02-20] VITALS: BP 147/74
--- NOTE | 2020-02-20 00:50 | NUR ---
0145 Patient found on floor kneeling at bedside by primary care RN. Stated that he got confused and thought he could get out of bed by himself because he got tired of laying down in bed. He was assisted back to bed with the help of 3 other RNs, including Charge Nurse. Upon assessing, patient denied any pain or injury. No signs of distress or injury noted. Vital signs within normal limits. Notified Vice President Talent Management and Hospitalist. ordered sitter for patient. Placed patient in Yoni bed (with a louder bed alarm) closer to door, closer to nurses' station. Fall care plan already in place on patient process plan, bed alarm turned on and audible. Reinforced education of fall prevention and patient demonstrated back the proper use of call light. Will continue to monitor.
[2020-02-20] MEDS: HYDROcodone/acetaminophen 10/325mg tab PO PRN ×2 (02:23→14:39)
[2020-02-20] MEDS: HYDROcodone/acetaminophen 5mg/325mg tablet PO PRN (05:39)
[2020-02-20] MEDS: normal saline 1000ml 1,000 ML IV SCH ×2 (06:45→14:39)
--- NOTE | 2020-02-20 06:46 | NUR ---
Problems reprioritized. Patient report given, questions answered & plan of care reviewed with WILLIAM Hadley.
[2020-02-20 07:27] LABS: HEP B CORE AB, TOT Negative (Negative)
[2020-02-20 07:27] LABS: HBSAG SCREEN Negative (Negative)
[2020-02-20 07:30] LABS: BASOPHILS % (AUTO) 0.4 % (0-1); EOSINOPHILS % (AUTO) 0.2 % (0-6); HEMATOCRIT 23.2 % (42.0-52.0); HEMOGLOBIN 8.1 g/dl (14.0-17.9); LYMPHOCYTES # (AUTO) 0.5 X10'3 (1.1-4.8); LYMPHOCYTES % (AUTO) 3.4 % (21-51); MEAN CORPUSCULAR HEMOGLOBIN 29.6 PG (27.0-31.0); MEAN CORPUSCULAR HGB CONC 34.9 g/dL (33.0-36.5); MEAN CORPUSCULAR VOLUME 84.8 FL (78-98); MONOCYTES # (AUTO) 1.2 X10'3 (0-0.9); MONOCYTES % (AUTO) 8.5 % (2-12); NEUTROPHILS % (AUTO) 87.5 % (42-75); PLATELET COUNT 500 X10'3 (140-440); RED BLOOD COUNT 2.74 X10'6 (4.70-6.10); RED CELL DISTRIBUTION WIDTH 14.1 % (11.5-14.5); WHITE BLOOD COUNT 13.8 X10'3 (4.5-11.0)
[2020-02-20] MEDS: fenofibrate 145mg tablet PO SCH (07:48)
[2020-02-20] MEDS: lactobacillus rhamnosus 10,000 MMU CELLS/CAPSULE PO SCH ×2 (07:49→20:00)
[2020-02-20] MEDS: clopidogrel 75mg tablet PO SCH (07:49)
[2020-02-20] MEDS: buPROPion SR 150mg tablet PO SCH (07:49)
[2020-02-20] MEDS: atorvastatin 20mg tablet PO SCH (07:49)
[2020-02-20] MEDS: gabapentin 100mg capsule PO SCH (07:49)
[2020-02-20] MEDS: heparin, porcine 5000 units/ml vial SQ SCH ×3 (07:50→17:18)
[2020-02-20 08:00] VITALS: BP 163/84
[2020-02-20] MEDS: K and/or MAG REPLACEMENT MC SCH ×2 (08:00→20:00)
[2020-02-20 08:10] LABS: ALANINE AMINOTRANSFERASE 30 U/L (12-78); ALBUMIN 2.1 G/DL (3.4-5.0); ALBUMIN/GLOBULIN RATIO 0.5 (1.1-1.5); ALKALINE PHOSPHATASE 88 IU/L (46-116); ANION GAP 13 (8-16); ASPARTATE AMINO TRANSFERASE 19 U/L (10-37); BILIRUBIN,TOTAL 0.3 MG/DL (0.1-1.0); BLOOD UREA NITROGEN 35 MG/DL (7-18); BUN/CREATININE RATIO 5.7 (5.4-32.0); CALCIUM 8.2 MG/DL (8.5-10.1); CHLORIDE 101 MMOL/L (99-107); CREATININE 6.11 MG/DL (0.60-1.10); GLUCOSE 131 MG/DL (70-104); MAGNESIUM 1.8 MG/DL (1.5-2.4); PHOSPHORUS 5.1 MG/DL (2.3-4.5); POTASSIUM 3.6 MMOL/L (3.5-5.1); SODIUM 136 MMOL/L (135-145); TOTAL CARBON DIOXIDE 21.9 MMOL/L (24-32); TOTAL PROTEIN 6.6 G/DL (6.4-8.2); eGFR 9 ML/MIN
--- NOTE | 2020-02-20 09:05 | NUR ---
No Insulin coverage needed. 10 cabs eaten, accu check 130 =0u
[2020-02-20 11:00] VITALS: BP 155/80
--- NOTE | 2020-02-20 14:42 | NUR ---
No coverage for insulin correction for lunch. Patient refused to take norco even though he stated to tech that he was in pain.
--- NOTE | 2020-02-20 18:00 | NUR ---
Patient in room AMBER 359. I have received report from Leonie THOMAS and had the opportunity to ask questions and assume patient care.
--- NOTE | 2020-02-20 18:32 | NUR ---
Problems reprioritized. Patient report given, questions answered & plan of care reviewed with Deyanira THOMAS.
[2020-02-20 19:00] VITALS: BP 158/82
[2020-02-20] MEDS: insulin Lispro (HumaLOG) vial - multi-dose SQ SCH (19:29)
--- NOTE | 2020-02-20 21:27 | NUR ---
patient being combative security came and when pt realized he was in the hospital he calmed down. Notified hospitalist and she said to give him xanex 0.25 po and to also order a CT scan of his brain in the morning
[2020-02-20] MEDS: ALPRAZolam 0.25mg tablet PO PRN (21:48)
[2020-02-20] MEDS: insulin glargine (Lantus) pen - multi-dose SQ SCH (21:53)
[2020-02-20] MEDS: tamsulosin 0.4mg capsule PO SCH (21:59)
[2020-02-21] MEDS: heparin, porcine 5000 units/ml vial SQ SCH ×4 (00:43→23:15)
--- NOTE | 2020-02-21 06:26 | NUR ---
Problems reprioritized. Patient report given, questions answered & plan of care reviewed with Kim THOMAS.
[2020-02-21 06:27] LABS: BASOPHILS # (AUTO) 0.1 X10'3 (0-0.2); BASOPHILS % (AUTO) 0.6 % (0-1); EOSINOPHILS % (AUTO) 0.1 % (0-6); HEMATOCRIT 23.5 % (42.0-52.0); LYMPHOCYTES # (AUTO) 0.7 X10'3 (1.1-4.8); LYMPHOCYTES % (AUTO) 6.4 % (21-51); MEAN CORPUSCULAR HEMOGLOBIN 29.1 PG (27.0-31.0); MEAN CORPUSCULAR VOLUME 85.4 FL (78-98); MEAN PLATELET VOLUME 6.9 FL (7.4-10.4); MONOCYTES # (AUTO) 1.3 X10'3 (0-0.9); MONOCYTES % (AUTO) 11.3 % (2-12); NEUTROPHILS % (AUTO) 81.6 % (42-75); PLATELET COUNT 490 X10'3 (140-440); RED BLOOD COUNT 2.76 X10'6 (4.70-6.10); RED CELL DISTRIBUTION WIDTH 14.1 % (11.5-14.5)
--- NOTE | 2020-02-21 06:27 | NUR ---
Problems reprioritized. Patient report given, questions answered & plan of care reviewed with Kim THOMAS.
--- NOTE | 2020-02-21 06:35 | NUR ---
Patient in room AMBER 359. I have received report from WILLIAM Mcmillan and had the opportunity to ask questions and assume patient care.
[2020-02-21 06:44] LABS: ALANINE AMINOTRANSFERASE 27 U/L (12-78); ALBUMIN 2.1 G/DL (3.4-5.0); ALBUMIN/GLOBULIN RATIO 0.5 (1.1-1.5); ALKALINE PHOSPHATASE 87 IU/L (46-116); ANION GAP 15 (8-16); ASPARTATE AMINO TRANSFERASE 17 U/L (10-37); BILIRUBIN,TOTAL 0.4 MG/DL (0.1-1.0); BLOOD UREA NITROGEN 43 MG/DL (7-18); BUN/CREATININE RATIO 5.9 (5.4-32.0); CALCIUM 8.6 MG/DL (8.5-10.1); CHLORIDE 102 MMOL/L (99-107); CREATININE 7.33 MG/DL (0.60-1.10); GLUCOSE 117 MG/DL (70-104); PHOSPHORUS 6.6 MG/DL (2.3-4.5); POTASSIUM 3.9 MMOL/L (3.5-5.1); SODIUM 137 MMOL/L (135-145); TOTAL CARBON DIOXIDE 20.1 MMOL/L (24-32); TOTAL PROTEIN 6.5 G/DL (6.4-8.2); eGFR 8 ML/MIN
[2020-02-21] MEDS ORDERED: heparin 1,000unit/ml 10ml vial 10 ML IV ONE (07:05)
[2020-02-21] MEDS ORDERED: epoetin 20,000 units/ml inj IV ONE (07:05)
[2020-02-21] MEDS ORDERED: normal saline 1000ml 250 ML IV PRN (07:05)
[2020-02-21] MEDS ORDERED: heparin 1,000 units/ml 10ml inj HE ONE ×2 (07:10)
[2020-02-21] MEDS: normal saline 1000ml 1,000 ML IV SCH ×3 (07:29→23:14)
[2020-02-21 07:30] VITALS: BP 168/90
[2020-02-21] MEDS: K and/or MAG REPLACEMENT MC SCH ×2 (07:31→20:00)
[2020-02-21] MEDS: clopidogrel 75mg tablet PO SCH (07:38)
[2020-02-21] MEDS: atorvastatin 20mg tablet PO SCH (07:38)
[2020-02-21] MEDS: gabapentin 100mg capsule PO SCH (07:38)
[2020-02-21] MEDS: lactobacillus rhamnosus 10,000 MMU CELLS/CAPSULE PO SCH ×2 (07:38→19:51)
[2020-02-21] MEDS: fenofibrate 145mg tablet PO SCH (07:39)
[2020-02-21] MEDS: buPROPion SR 150mg tablet PO SCH (07:39)
[2020-02-21] MEDS: insulin Lispro (HumaLOG) vial - multi-dose SQ SCH ×2 (09:23→13:56)
[2020-02-21 11:00] VITALS: BP 152/97
[2020-02-21] MEDS ORDERED: Melatonin 3mg tablet PO PRN (11:15)
--- NOTE | 2020-02-21 15:00 | NUR ---
Patient returned from CT via gurney and staff. Patient was diaphoretic and having some abdominal breathing. Patient vital signs were checked and the oxygen saturation was reading at 77%. Patient was previously on room air prior to leaving for CT. Patient required 4L via NC to come up to 94%. Blood pressure was 170/89 heart rate was 113 RR 24. Approximately, 10 minutes later patient had fully recovered and oxygen was decrease to 2L NC with a saturation of 97%, pressure 156/87, heart rate 98, respiratory rate of 20. EMILY notified and Debra Gutiérrez notified.
--- NOTE | 2020-02-21 17:00 | NUR ---
Patient was again appearing diaphoretic and requiring 2L of O2 via NC. Patient also having slight tremors. Debra Gutiérrez called and new orders received. Will continue to monitor patient.
[2020-02-21] MEDS ORDERED: normal saline 500ml IV soln 1,000 ML IV ONE (17:15)
--- NOTE | 2020-02-21 17:30 | NUR ---
Patient states, "I feel fine, other than my left foot which is gone" (patient had left BKA). No complaints of SOB.
[2020-02-21 18:28] LABS: BASOPHILS # (AUTO) 0.1 X10'3 (0-0.2); BASOPHILS % (AUTO) 0.7 % (0-1); EOSINOPHILS % (AUTO) 0.2 % (0-6); HEMATOCRIT 23.7 % (42.0-52.0); HEMOGLOBIN 7.9 g/dl (14.0-17.9); LYMPHOCYTES # (AUTO) 0.4 X10'3 (1.1-4.8); LYMPHOCYTES % (AUTO) 2.9 % (21-51); MEAN CORPUSCULAR HEMOGLOBIN 28.2 PG (27.0-31.0); MEAN CORPUSCULAR HGB CONC 33.3 g/dL (33.0-36.5); MEAN CORPUSCULAR VOLUME 84.8 FL (78-98); MONOCYTES # (AUTO) 0.9 X10'3 (0-0.9); MONOCYTES % (AUTO) 6.1 % (2-12); NEUTROPHILS # (AUTO) 13.7 X10'3 (1.8-7.7); NEUTROPHILS % (AUTO) 90.1 % (42-75); PLATELET COUNT 525 X10'3 (140-440); RED CELL DISTRIBUTION WIDTH 14.2 % (11.5-14.5); WHITE BLOOD COUNT 15.2 X10'3 (4.5-11.0)
[2020-02-21 18:46] LABS: ALANINE AMINOTRANSFERASE 33 U/L (12-78); ALBUMIN 2.2 G/DL (3.4-5.0); ALBUMIN/GLOBULIN RATIO 0.5 (1.1-1.5); ALKALINE PHOSPHATASE 92 IU/L (46-116); ANION GAP 14 (8-16); ASPARTATE AMINO TRANSFERASE 27 U/L (10-37); BILIRUBIN,TOTAL 0.3 MG/DL (0.1-1.0); BLOOD UREA NITROGEN 28 MG/DL (7-18); BUN/CREATININE RATIO 5.4 (5.4-32.0); CALCIUM 8.4 MG/DL (8.5-10.1); CHLORIDE 103 MMOL/L (99-107); CREATININE 5.21 MG/DL (0.60-1.10); GLUCOSE 133 MG/DL (70-104); SODIUM 140 MMOL/L (135-145); TOTAL CARBON DIOXIDE 23.4 MMOL/L (24-32); TOTAL PROTEIN 6.7 G/DL (6.4-8.2); eGFR 11 ML/MIN
--- NOTE | 2020-02-21 18:59 | NUR ---
Debra Gutiérrez called regarding patient post 500 cc bolus. Patient is now having a hard time finishing a sentence in one breath. Patient still appearing pale and clammy. New order for chest xray put in by Debra Gutiérrez.
--- NOTE | 2020-02-21 19:02 | NUR ---
Problems reprioritized. Patient report given, questions answered & plan of care reviewed with WILLIAM Carreon.
[2020-02-21] MEDS ORDERED: furosemide 10 MG/1 ML 10ml inj IV ONE (19:25)
[2020-02-21] MEDS: tamsulosin 0.4mg capsule PO SCH (19:51)
[2020-02-21 20:00] VITALS: BP 164/90
[2020-02-21] MEDS: Melatonin 3mg tablet PO SCH (21:37)
[2020-02-21] MEDS: insulin glargine (Lantus) pen - multi-dose SQ SCH (21:50)
[2020-02-22] VITALS: BP 139/70
--- NOTE | 2020-02-22 01:30 | NUR ---
Pt confused, trying to get OOB to take a shower at home, attempting to call 911, hitting at staff. Security called to assist in orienting pt and was called as well. @ 0200 Pt was able to be reoriented and did take his Xanax. Pt apologized for hitting at aide and nurses. Addendum: 02/22/20 at 0320 by Velma Reyes RN Amended: Links added.
[2020-02-22] MEDS: ALPRAZolam 0.25mg tablet PO PRN (01:54)
[2020-02-22 07:00] VITALS: BP 161/84
[2020-02-22 07:18] LABS: BASOPHILS # (AUTO) 0.1 X10'3 (0-0.2); BASOPHILS % (AUTO) 0.8 % (0-1); EOSINOPHILS # (AUTO) 0.1 X10'3 (0-0.9); EOSINOPHILS % (AUTO) 0.7 % (0-6); HEMOGLOBIN 7.4 g/dl (14.0-17.9); LYMPHOCYTES # (AUTO) 0.7 X10'3 (1.1-4.8); LYMPHOCYTES % (AUTO) 7.1 % (21-51); MEAN CORPUSCULAR HEMOGLOBIN 29.1 PG (27.0-31.0); MEAN CORPUSCULAR HGB CONC 34.1 g/dL (33.0-36.5); MEAN CORPUSCULAR VOLUME 85.4 FL (78-98); MEAN PLATELET VOLUME 6.9 FL (7.4-10.4); MONOCYTES # (AUTO) 1.2 X10'3 (0-0.9); MONOCYTES % (AUTO) 11.2 % (2-12); NEUTROPHILS # (AUTO) 8.3 X10'3 (1.8-7.7); NEUTROPHILS % (AUTO) 80.2 % (42-75); PLATELET COUNT 474 X10'3 (140-440); RED BLOOD COUNT 2.55 X10'6 (4.70-6.10); RED CELL DISTRIBUTION WIDTH 14.4 % (11.5-14.5); WHITE BLOOD COUNT 10.3 X10'3 (4.5-11.0)
[2020-02-22 07:29] LABS: ALANINE AMINOTRANSFERASE 29 U/L (12-78); ALBUMIN/GLOBULIN RATIO 0.5 (1.1-1.5); ALKALINE PHOSPHATASE 82 IU/L (46-116); ANION GAP 11 (8-16); ASPARTATE AMINO TRANSFERASE 20 U/L (10-37); BILIRUBIN,TOTAL 0.3 MG/DL (0.1-1.0); BLOOD UREA NITROGEN 32 MG/DL (7-18); BUN/CREATININE RATIO 5.4 (5.4-32.0); CALCIUM 8.4 MG/DL (8.5-10.1); CHLORIDE 104 MMOL/L (99-107); CREATININE 5.91 MG/DL (0.60-1.10); GLUCOSE 106 MG/DL (70-104); MAGNESIUM 1.9 MG/DL (1.5-2.4); PHOSPHORUS 5.4 MG/DL (2.3-4.5); POTASSIUM 3.8 MMOL/L (3.5-5.1); SODIUM 139 MMOL/L (135-145); TOTAL CARBON DIOXIDE 24.4 MMOL/L (24-32); TOTAL PROTEIN 6.2 G/DL (6.4-8.2); eGFR 10 ML/MIN
[2020-02-22] MEDS: K and/or MAG REPLACEMENT MC SCH ×2 (07:49→20:00)
[2020-02-22] MEDS: clopidogrel 75mg tablet PO SCH (07:52)
[2020-02-22] MEDS: atorvastatin 20mg tablet PO SCH (07:52)
[2020-02-22] MEDS: lactobacillus rhamnosus 10,000 MMU CELLS/CAPSULE PO SCH ×2 (07:52→20:51)
[2020-02-22] MEDS: buPROPion SR 150mg tablet PO SCH (07:52)
[2020-02-22] MEDS: fenofibrate 145mg tablet PO SCH (07:52)
[2020-02-22] MEDS: gabapentin 100mg capsule PO SCH (07:52)
[2020-02-22] MEDS: heparin, porcine 5000 units/ml vial SQ SCH ×2 (07:53→16:22)
[2020-02-22 08:12] LABS: HEMATOCRIT 21.8 % (42.0-52.0)
[2020-02-22] MEDS: normal saline 1000ml 1,000 ML IV SCH (08:45)
[2020-02-22] MEDS: insulin Lispro (HumaLOG) vial - multi-dose SQ SCH ×3 (09:22→18:47)
[2020-02-22 11:00] VITALS: BP 165/84
[2020-02-22] MEDS ORDERED: furosemide 10 MG/1 ML 10ml inj IV ONE (11:15)
[2020-02-22 12:01] LABS: ABG BASE EXCESS -2.5 mmol/L (-2.0-2.0); ABG OXYGEN SATURATION 96.9 % (94-97); ABG PCO2 (T) 36.5 mmHg (35.0-48.0); ABG PO2 (T) 93.7 mmHg (75.0-100.0); ALLEN'S TEST POSITIVE; FCOHb 0.3 % (0.0-3.9); FLOW 2 L/min; FMetHb 0.2 % (0.0-1.5); FO2Hb 96.4 % (94-97); TOTAL HEMOGLOBIN 8.5 G/dl (14.0-18.0)
[2020-02-22] MEDS ORDERED: iohexol 350MG/ML 100ml bottle IV ONE (13:06)
--- NOTE | 2020-02-22 15:23 | NUR ---
Reassessment: Per MD progress note will be receiving lasix, short of breath, and confused. Admit with metabolic encephalopathy, acute respiratory failure, hypoxemia, AISHA, osteomyelitis s/p L BKA on 02/12. 3rd dialysis was 02/20. On average, pt is eating 50-74% of meals, with 50-75% PO intake of protein and at times is able to eat 100% of protein. Recommend to add double eggs and double meat with lunch and dinner. Pt has already been seen by RD where pt declined ONS. Pt has RD contact information and has been encouraged to reach out for food preferences. Last BM 02/20. Will continue to follow and monitor need for additional protein pending further trends in PO intake. Rec: 1. continue carb controlled diet 2. double eggs, double meat with lunch and dinner 3. routine bowel care 4. scaled wt this admit Addendum: 02/22/20 at [address] Amended: Links added.
--- NOTE | 2020-02-22 18:29 | NUR ---
Patient in room AMBER 345. I have received report from WILLIAM Alvarez and had the opportunity to ask questions and assume patient care
--- NOTE | 2020-02-22 18:33 | NUR ---
Problems reprioritized. Patient report given, questions answered & plan of care reviewed with WILLIAM Valencia.
[2020-02-22 18:40] VITALS: BP 149/76
[2020-02-22] MEDS: HYDROcodone/acetaminophen 10/325mg tab PO PRN (18:48)
[2020-02-22] MEDS: Melatonin 3mg tablet PO SCH (20:51)
[2020-02-22] MEDS: tamsulosin 0.4mg capsule PO SCH (20:51)
[2020-02-22] MEDS: insulin glargine (Lantus) pen - multi-dose SQ SCH (20:52)
[2020-02-23] MEDS: heparin, porcine 5000 units/ml vial SQ SCH ×4 (00:21→23:10)
[2020-02-23 00:23] VITALS: BP 153/85
[2020-02-23] MEDS: ALPRAZolam 0.25mg tablet PO PRN (01:43)
[2020-02-23] MEDS: HYDROcodone/acetaminophen 10/325mg tab PO PRN ×3 (04:54→23:07)
[2020-02-23 06:15] LABS: BASOPHILS # (AUTO) 0.1 X10'3 (0-0.2); BASOPHILS % (AUTO) 0.8 % (0-1); EOSINOPHILS # (AUTO) 0.2 X10'3 (0-0.9); EOSINOPHILS % (AUTO) 1.1 % (0-6); HEMATOCRIT 23.9 % (42.0-52.0); HEMOGLOBIN 8.2 g/dl (14.0-17.9); LYMPHOCYTES # (AUTO) 0.4 X10'3 (1.1-4.8); LYMPHOCYTES % (AUTO) 2.7 % (21-51); MEAN CORPUSCULAR HEMOGLOBIN 29.4 PG (27.0-31.0); MEAN CORPUSCULAR HGB CONC 34.1 g/dL (33.0-36.5); MEAN CORPUSCULAR VOLUME 86.1 FL (78-98); MEAN PLATELET VOLUME 6.8 FL (7.4-10.4); MONOCYTES # (AUTO) 1.1 X10'3 (0-0.9); MONOCYTES % (AUTO) 7.7 % (2-12); NEUTROPHILS % (AUTO) 87.7 % (42-75); PLATELET COUNT 551 X10'3 (140-440); RED BLOOD COUNT 2.78 X10'6 (4.70-6.10); RED CELL DISTRIBUTION WIDTH 14.6 % (11.5-14.5); WHITE BLOOD COUNT 14.8 X10'3 (4.5-11.0)
[2020-02-23] MEDS ORDERED: normal saline 1000ml 250 ML IV PRN (06:15)
[2020-02-23] MEDS ORDERED: heparin 1,000unit/ml 10ml vial 10 ML IV ONE (06:15)
[2020-02-23] MEDS ORDERED: epoetin 20,000 units/ml inj IV ONE (06:15)
[2020-02-23] MEDS ORDERED: heparin 1,000 units/ml 10ml inj HE ONE ×2 (06:20)
--- NOTE | 2020-02-23 06:33 | NUR ---
Problems reprioritized. Patient report given, questions answered & plan of care reviewed with WILLIAM Jones.
[2020-02-23 06:41] LABS: ALANINE AMINOTRANSFERASE 28 U/L (12-78); ALBUMIN 2.1 G/DL (3.4-5.0); ALBUMIN/GLOBULIN RATIO 0.5 (1.1-1.5); ALKALINE PHOSPHATASE 98 IU/L (46-116); ANION GAP 12 (8-16); ASPARTATE AMINO TRANSFERASE 15 U/L (10-37); BILIRUBIN,TOTAL 0.3 MG/DL (0.1-1.0); BLOOD UREA NITROGEN 42 MG/DL (7-18); BUN/CREATININE RATIO 6.1 (5.4-32.0); CALCIUM 8.3 MG/DL (8.5-10.1); CHLORIDE 102 MMOL/L (99-107); CREATININE 6.91 MG/DL (0.60-1.10); GLUCOSE 121 MG/DL (70-104); PHOSPHORUS 6.3 MG/DL (2.3-4.5); SODIUM 138 MMOL/L (135-145); TOTAL CARBON DIOXIDE 24.5 MMOL/L (24-32); TOTAL PROTEIN 6.4 G/DL (6.4-8.2); eGFR 8 ML/MIN
[2020-02-23] MEDS: gabapentin 100mg capsule PO SCH (07:11)
[2020-02-23] MEDS: buPROPion SR 150mg tablet PO SCH (07:11)
[2020-02-23] MEDS: atorvastatin 20mg tablet PO SCH (07:11)
[2020-02-23] MEDS: fenofibrate 145mg tablet PO SCH (07:11)
[2020-02-23] MEDS: lactobacillus rhamnosus 10,000 MMU CELLS/CAPSULE PO SCH ×2 (07:11→20:27)
[2020-02-23] MEDS: clopidogrel 75mg tablet PO SCH (07:11)
[2020-02-23 08:00] VITALS: BP 166/95
[2020-02-23] MEDS: K and/or MAG REPLACEMENT MC SCH ×2 (08:00→20:00)
[2020-02-23] MEDS: insulin Lispro (HumaLOG) vial - multi-dose SQ SCH ×3 (08:38→19:04)
--- NOTE | 2020-02-23 11:18 | NUR ---
IV removed per Dr Melissa xie.
[2020-02-23 12:00] VITALS: BP 156/93
[2020-02-23 15:52] VITALS: BP 161/90
[2020-02-23 15:58] VITALS: BP 145/86
[2020-02-23 16:39] LABS: BFSOURCE LEFT PLEURAL FLD; PLEURAL FLUID PH 7.467 (7.63-7.65)
[2020-02-23 16:47] LABS: GLUCOSE,BODY FLUID 144 MG/DL; LDH,BODY FLUID 64 U/L
[2020-02-23 17:08] LABS: TOTAL PROTEIN,BODY FLUID < 2.0 G/DL
[2020-02-23 17:45] LABS: BF RBC COUNT 23 /CU MM; BF WBC COUNT 64 /CU MM (0-1000); BFAPPEAR CLEAR; BFCOLOR STRAW; BFVOLUME 56 ML; LYMPHOCYTES,BODY FLUID 32 %; NEUTROPHILS,BODY FLUID 15 %
[2020-02-23 17:46] LABS: BF MESOTHELIAL CELLS FEW; MONOCYTES,BODY FLUID 53 %
[2020-02-23 17:47] LABS: OTHER CELLS,BODY FLUID PLASMA CELLS
--- NOTE | 2020-02-23 18:56 | NUR ---
Problems reprioritized. Patient report given, questions answered & plan of care reviewed with Meli Gardner. Pt more alert and less confused today. sitter D/C'd. IR drained pleural effusion 850ml to right lung and 1100ml to left lung. No SOB or c/o pain or discomfort.
[2020-02-23 20:00] VITALS: BP 159/75
[2020-02-23] MEDS: Melatonin 3mg tablet PO SCH (20:27)
[2020-02-23] MEDS: tamsulosin 0.4mg capsule PO SCH (20:27)
[2020-02-23] MEDS: insulin glargine (Lantus) pen - multi-dose SQ SCH (20:34)
[2020-02-23 23:27] LABS: CLARITY,URINE SLIGHTLY CLOUDY (Clear); COLOR,URINE YELLOW (Yellow); GLUCOSE, URINE NEGATIVE (Neg); KETONES,URINE NEGATIVE (Neg); LEUKOCYTE ESTERASE ,URINE TRACE (Neg); NITRITES, URINE NEGATIVE (Neg); OCCULT BLOOD,URINE LARGE (Neg); PH,URINE 5.5 (4.8-8.0); PROTEIN,URINE 100 mg/dl (Neg); UROBILINOGEN,URINE 0.2 E.U/dL (0.2-1.0)
[2020-02-23 23:29] LABS: UA COLLECTION TYPE CLN CATCH MIDSTREAM
[2020-02-23 23:35] LABS: BACTERIA,URINE 2+ /HPF (Neg); SQUAMOUS EPITHELIAL CELL,UR FEW /LPF (FEW)
[2020-02-24] VITALS: BP 152/80
[2020-02-24 06:01] LABS: BASOPHILS # (AUTO) 0.1 X10'3 (0-0.2); EOSINOPHILS # (AUTO) 0.1 X10'3 (0-0.9); EOSINOPHILS % (AUTO) 0.9 % (0-6); HEMATOCRIT 25.2 % (42.0-52.0); HEMOGLOBIN 8.4 g/dl (14.0-17.9); LYMPHOCYTES # (AUTO) 0.6 X10'3 (1.1-4.8); MEAN CORPUSCULAR HEMOGLOBIN 28.4 PG (27.0-31.0); MEAN CORPUSCULAR HGB CONC 33.3 g/dL (33.0-36.5); MEAN CORPUSCULAR VOLUME 85.4 FL (78-98); MEAN PLATELET VOLUME 6.9 FL (7.4-10.4); NEUTROPHILS # (AUTO) 10.1 X10'3 (1.8-7.7); NEUTROPHILS % (AUTO) 85.1 % (42-75); PLATELET COUNT 503 X10'3 (140-440); RED BLOOD COUNT 2.95 X10'6 (4.70-6.10); RED CELL DISTRIBUTION WIDTH 14.6 % (11.5-14.5); WHITE BLOOD COUNT 11.8 X10'3 (4.5-11.0)
[2020-02-24 06:05] LABS: ALANINE AMINOTRANSFERASE 25 U/L (12-78); ALBUMIN/GLOBULIN RATIO 0.5 (1.1-1.5); ALKALINE PHOSPHATASE 89 IU/L (46-116); ANION GAP 11 (8-16); ASPARTATE AMINO TRANSFERASE 17 U/L (10-37); BILIRUBIN,TOTAL 0.3 MG/DL (0.1-1.0); BLOOD UREA NITROGEN 39 MG/DL (7-18); BUN/CREATININE RATIO 6.7 (5.4-32.0); CALCIUM 8.2 MG/DL (8.5-10.1); CHLORIDE 101 MMOL/L (99-107); CREATININE 5.81 MG/DL (0.60-1.10); GLUCOSE 105 MG/DL (70-104); MAGNESIUM 1.8 MG/DL (1.5-2.4); PHOSPHORUS 4.9 MG/DL (2.3-4.5); POTASSIUM 3.7 MMOL/L (3.5-5.1); SODIUM 138 MMOL/L (135-145); TOTAL CARBON DIOXIDE 26.2 MMOL/L (24-32); TOTAL PROTEIN 6.1 G/DL (6.4-8.2); eGFR 10 ML/MIN
--- NOTE | 2020-02-24 06:22 | NUR ---
Problems reprioritized. Patient report given, questions answered & plan of care reviewed with WILLIAM Miner.
--- NOTE | 2020-02-24 06:32 | NUR ---
Patient in room AMBER 359. I have received report from WILLIAM Gardner and had the opportunity to ask questions and assume patient care.
[2020-02-24 07:00] VITALS: BP 163/89
[2020-02-24] MEDS: K and/or MAG REPLACEMENT MC SCH ×2 (08:00→19:40)
[2020-02-24] MEDS: gabapentin 100mg capsule PO SCH (08:37)
[2020-02-24] MEDS: lactobacillus rhamnosus 10,000 MMU CELLS/CAPSULE PO SCH ×2 (08:37→19:44)
[2020-02-24] MEDS: buPROPion SR 150mg tablet PO SCH (08:37)
[2020-02-24] MEDS: clopidogrel 75mg tablet PO SCH (08:37)
[2020-02-24] MEDS: fenofibrate 145mg tablet PO SCH (08:38)
[2020-02-24] MEDS: heparin, porcine 5000 units/ml vial SQ SCH ×2 (08:38→19:43)
[2020-02-24] MEDS: atorvastatin 20mg tablet PO SCH (08:38)
[2020-02-24] MEDS: insulin Lispro (HumaLOG) vial - multi-dose SQ SCH ×3 (08:43→18:52)
[2020-02-24] MEDS ORDERED: heparin 1,000 units/ml 10ml inj IV ONE (09:05)
[2020-02-24] MEDS ORDERED: heparin 1,000unit/ml 10ml vial 10 ML IV ONE (09:05)
[2020-02-24] MEDS ORDERED: heparin 1,000 units/ml 10ml inj HE ONE (09:10)
[2020-02-24 11:00] VITALS: BP 168/99
--- NOTE | 2020-02-24 18:30 | NUR ---
Patient in room AMBER 359. I have received report from Isidra THOMAS and had the opportunity to ask questions and assume patient care.
--- NOTE | 2020-02-24 18:34 | NUR ---
Problems reprioritized. Patient report given, questions answered & plan of care reviewed with WILLIAM Hirsch.
[2020-02-24 19:00] VITALS: BP 160/78
[2020-02-24] MEDS: tamsulosin 0.4mg capsule PO SCH (20:27)
[2020-02-24] MEDS: Melatonin 3mg tablet PO SCH (20:27)
[2020-02-24] MEDS: HYDROcodone/acetaminophen 5mg/325mg tablet PO PRN (20:32)
[2020-02-24] MEDS: insulin glargine (Lantus) pen - multi-dose SQ SCH (22:08)
[2020-02-25] VITALS: BP 134/64
[2020-02-25] MEDS: heparin, porcine 5000 units/ml vial SQ SCH ×2 (00:17→08:38)
--- NOTE | 2020-02-25 06:26 | NUR ---
Patient in room AMBER 359. I have received report from WILLIAM Hircsh and had the opportunity to ask questions and assume patient care.
--- NOTE | 2020-02-25 06:30 | NUR ---
Problems reprioritized. Patient report given, questions answered & plan of care reviewed with Isidra THOMAS.
[2020-02-25 07:00] VITALS: BP 168/87
[2020-02-25] MEDS ORDERED: heparin 1,000 units/ml 10ml inj HE ONE ×2 (08:00)
[2020-02-25] MEDS ORDERED: heparin 1,000unit/ml 10ml vial 10 ML IV ONE (08:00)
[2020-02-25] MEDS: clopidogrel 75mg tablet PO SCH (08:38)
[2020-02-25] MEDS: gabapentin 100mg capsule PO SCH (08:38)
[2020-02-25] MEDS: atorvastatin 20mg tablet PO SCH (08:38)
[2020-02-25] MEDS: lactobacillus rhamnosus 10,000 MMU CELLS/CAPSULE PO SCH (08:39)
[2020-02-25] MEDS: fenofibrate 145mg tablet PO SCH (08:39)
[2020-02-25] MEDS: buPROPion SR 150mg tablet PO SCH (08:39)
[2020-02-25] MEDS: insulin Lispro (HumaLOG) vial - multi-dose SQ SCH (08:45)
[2020-02-25] MEDS ORDERED: LANTUS SQ (10:35)
[2020-02-25] MEDS ORDERED: LANC-509 TOP (10:35)
[2020-02-25] MEDS ORDERED: INSU100V11 SQ (10:35)
[2020-02-25] MEDS ORDERED: FLAS1EAC2 TOP (10:35)
[2020-02-25] MEDS ORDERED: SYRI1DIS90 MC (10:35)
[2020-02-25 10:46] LABS: BASOPHILS # (AUTO) 0.1 X10'3 (0-0.2); BASOPHILS % (AUTO) 0.6 % (0-1); EOSINOPHILS # (AUTO) 0.1 X10'3 (0-0.9); EOSINOPHILS % (AUTO) 0.5 % (0-6); HEMATOCRIT 24.5 % (42.0-52.0); HEMOGLOBIN 8.1 g/dl (14.0-17.9); LYMPHOCYTES # (AUTO) 0.5 X10'3 (1.1-4.8); MEAN CORPUSCULAR HEMOGLOBIN 28.1 PG (27.0-31.0); MEAN CORPUSCULAR VOLUME 85.4 FL (78-98); MONOCYTES # (AUTO) 0.7 X10'3 (0-0.9); MONOCYTES % (AUTO) 5.5 % (2-12); NEUTROPHILS # (AUTO) 11.6 X10'3 (1.8-7.7); NEUTROPHILS % (AUTO) 89.4 % (42-75); PLATELET COUNT 491 X10'3 (140-440); RED BLOOD COUNT 2.87 X10'6 (4.70-6.10); RED CELL DISTRIBUTION WIDTH 15.1 % (11.5-14.5); WHITE BLOOD COUNT 12.9 X10'3 (4.5-11.0)
[2020-02-25 11:00] VITALS: BP 159/97
[2020-02-25 11:02] LABS: ALANINE AMINOTRANSFERASE 19 U/L (12-78); ALBUMIN 1.9 G/DL (3.4-5.0); ALBUMIN/GLOBULIN RATIO 0.5 (1.1-1.5); ALKALINE PHOSPHATASE 81 IU/L (46-116); ANION GAP 11 (8-16); ASPARTATE AMINO TRANSFERASE 15 U/L (10-37); BILIRUBIN,TOTAL 0.3 MG/DL (0.1-1.0); BLOOD UREA NITROGEN 49 MG/DL (7-18); BUN/CREATININE RATIO 7.3 (5.4-32.0); CALCIUM 8.1 MG/DL (8.5-10.1); CHLORIDE 100 MMOL/L (99-107); CREATININE 6.73 MG/DL (0.60-1.10); GLUCOSE 175 MG/DL (70-104); MAGNESIUM 1.7 MG/DL (1.5-2.4); PHOSPHORUS 4.9 MG/DL (2.3-4.5); POTASSIUM 3.9 MMOL/L (3.5-5.1); SODIUM 136 MMOL/L (135-145); TOTAL CARBON DIOXIDE 25.2 MMOL/L (24-32); eGFR 8 ML/MIN
--- NOTE | 2020-02-25 15:25 | NUR ---
Pt discharged to home with all belongings, in private vehicle, accompanied by . Discharge instructions and medications reviewed, new prescriptions sent to [facility] in [place]. Dressing to left stump changed prior to discharge, adrien in place, incision well approximated. Follow up appointments scheduled for [facility] in [place], and [facility]. Pt notified of appointments, as well as printed instructions included with discharge paperwork. Pt transferred to wheelchair with assistance from PT and escorted to front lobby. PT also assisted pt to vehicle to provide education to pt and to be able to transfer to and from vehicles at home. Pt stated understanding of all discharge instructions and willingness to comply.
== END 2020-02-25 15:27 | disposition home health service (06) | DRG 474 ==
LOC: ER 11:51 → ED HOLD 16:42 → SUR 3N 20:30 → PACU 02-13 14:56 → SUR 3N 02-13 16:12
PROVIDERS: ADMIT Family Medicine; ATTEND Family Medicine
PROC: 0Y6J0Z1 Detachment at Left Lower Leg, High, Open Approach (ICD-10-PCS; principal; 2020-02-13 12:46)
PROC: 0JH63XZ Insertion of Tunneled Vascular Access Device into Chest Subcutaneous Tissue and Fascia, Percutaneous Approach (ICD-10-PCS; 2020-02-18)
PROC: 02HV33Z Insertion of Infusion Device into Superior Vena Cava, Percutaneous Approach (ICD-10-PCS; 2020-02-18)
PROC: B5181ZA Fluoroscopy of Superior Vena Cava using Low Osmolar Contrast, Guidance (ICD-10-PCS; 2020-02-18)
PROC: B548ZZA Ultrasonography of Superior Vena Cava, Guidance (ICD-10-PCS; 2020-02-18)
PROC: 0W9B3ZZ Drainage of Left Pleural Cavity, Percutaneous Approach (ICD-10-PCS; 2020-02-23)
PROC: 0W993ZZ Drainage of Right Pleural Cavity, Percutaneous Approach (ICD-10-PCS; 2020-02-23)
DX: T87.44 Infection of amputation stump, left lower extremity (principal); G93.41 Metabolic encephalopathy; J90 Pleural effusion, not elsewhere classified; L03.116 Cellulitis of left lower limb; M86.8X7 Other osteomyelitis, ankle and foot; N39.0 Urinary tract infection, site not specified; C67.9 Malignant neoplasm of bladder, unspecified; D64.9 Anemia, unspecified; E11.22 Type 2 diabetes mellitus with diabetic chronic kidney disease; E11.65 Type 2 diabetes mellitus with hyperglycemia; E11.69 Type 2 diabetes mellitus with other specified complication; E78.5 Hyperlipidemia, unspecified; E87.70 Fluid overload, unspecified; F17.200 Nicotine dependence, unspecified, uncomplicated; G47.33 Obstructive sleep apnea (adult) (pediatric); G54.6 Phantom limb syndrome with pain; I12.9 Hypertensive chronic kidney disease with stage 1 through stage 4 chronic kidney disease, or unspecified chronic kidney disease; I25.10 Atherosclerotic heart disease of native coronary artery without angina pectoris; I25.2 Old myocardial infarction; N18.9 Chronic kidney disease, unspecified; Z80.52 Family history of malignant neoplasm of bladder; Z83.3 Family history of diabetes mellitus; Z85.51 Personal history of malignant neoplasm of bladder; Y83.8 Other surgical procedures as the cause of abnormal reaction of the patient, or of later complication, without mention of misadventure at the time of the procedure; Z20.828 Contact with and (suspected) exposure to other viral communicable diseases
CPT/HCPCS: 32554; 32555; 36561; 93306; 96365; 99285; Z7506; Z7508; 36415; 36600; 70450; 71045; 71275; 73630; 76775; 76937; 80048; 80053; 80202; 81001; 82272; 82570; 82803; 82945; 82948; 83036; 83615; 83735; 83880; 83986; 84100; 84156; 84157; 84300; 85018; 85025; 85610; 86704; 86706; 87070; 87075; 87077; 87081; 87088; 87102; 87186; 87207; 87340; 87635; 89051; 93005; 93970; 93971; 97110; 97112; 97116; 97161; 97530; 99152; 99153; A4618; A6449; A7000; G0378; J0696; J0735; J0780; J1100; J1170; J1644; J1650; J1815; J1940; J2001; J2250; J2270; J2405; J2543; J2704; J2795; J3010; J3370; J7030; J7040; P9045; Q4081; Q9967

== ENCOUNTER 2020-03-03 11:21 | Outpatient (CLI) | payer BC ==
[~2020-03-03 11:21] MED LIST changes: -AMOX-580 PO; +CLOP75TA34 PO; -CLOP75TA35 PO; +FENO145T26 PO; +FLAS1EAC2 TOP; +INSU100V11 SQ; +LANC-509 TOP; +LANTUS SQ; -METF500T PO; +SYRI1DIS90 MC; +TEST75GE10 TD; +TRAM50TA2 PO; -VALS1TAB73 PO
== END 2020-03-03 23:59 | disposition home or self-care (01) ==
LOC: WOUND CARE 11:21
PROVIDERS: ATTEND Nurse Practitioner
DX: T87.89 Other complications of amputation stump (principal); E11.621 Type 2 diabetes mellitus with foot ulcer; L97.522 Non-pressure chronic ulcer of other part of left foot with fat layer exposed; I10 Essential (primary) hypertension; L03.115 Cellulitis of right lower limb; I25.10 Atherosclerotic heart disease of native coronary artery without angina pectoris; R31.9 Hematuria, unspecified; E78.5 Hyperlipidemia, unspecified; E11.52 Type 2 diabetes mellitus with diabetic peripheral angiopathy with gangrene; I96 Gangrene, not elsewhere classified; G47.30 Sleep apnea, unspecified; I25.2 Old myocardial infarction; M79.89 Other specified soft tissue disorders; G47.33 Obstructive sleep apnea (adult) (pediatric); F17.210 Nicotine dependence, cigarettes, uncomplicated; Z79.899 Other long term (current) drug therapy; Z86.14 Personal history of Methicillin resistant Staphylococcus aureus infection; Z99.81 Dependence on supplemental oxygen; Z85.54 Personal history of malignant neoplasm of ureter; Z79.82 Long term (current) use of aspirin; Z85.46 Personal history of malignant neoplasm of prostate; Z85.51 Personal history of malignant neoplasm of bladder; Z95.1 Presence of aortocoronary bypass graft; Z95.5 Presence of coronary angioplasty implant and graft; Y83.5 Amputation of limb(s) as the cause of abnormal reaction of the patient, or of later complication, without mention of misadventure at the time of the procedure
CPT/HCPCS: 82948; G0463